=== PATIENT | female | born 1955 | race Caucasian/White ===

== ENCOUNTER 2017-11-05 17:51 | Emergency (ER) | payer OTHER, SELFPAY ==
[2017-11-05 17:52] VITALS: BP 216/92; PULSE 68; RESP 18; TEMP 36.6; O2SAT 99; BMI 21.9
[2017-11-05 18:12] VITALS: BP 243/100; PULSE 74; RESP 18; O2SAT 99
[2017-11-05] MEDS: cloNIDine HCl 0.1 MG Tablet PO (18:27)
[2017-11-05 18:31] LABS: Absolute Lymphocyte Count 3.88 X10^3/ul (0.83-4.51); Absolute Neutrophil Count 3.9 X10^3/uL (2.0-7.7); Basophil# 0.04 X10^3/uL; Basophil% 0.5 % (0-1); Eosinophil# 0.06 X10^3/uL; Eosinophils% 0.7 % (0-5); Hematocrit 42.9 % (37-47); Hemoglobin 15.4 g/dl (12.0-15.0); Lymphocyte # 3.88 X10^3/ul (4.0); Lymphocyte % 45.6 % (19-41); Mean Corp Hgb Conc 35.9 g/gl (32-36); Mean Corpuscular Hgb 31.2 pg (27.0-32.0); Mean Platelet Vol. 10.1 fl (6.2-12.0); Monocyte# 0.59 X10^3/uL; Monocyte% 6.9 % (0-10); Neutrophil # 3.93 X10^3/uL (2.7-7.7); Neutrophil % 46.2 % (47-70); Platelet Count 219 K/mm3 (150-450); RBC Distribution Width CV 12.1 % (11.6-14.6); RBC Distribution Width SD 38.3 fl (35.1-43.9); Red Blood Count 4.93 M/mm3 (4.2-5.4); White Blood Count 8.5 K/mm3 (4.4-11.0)
[2017-11-05 18:33] LABS: POSITIVE COUNT NO; POSITIVE DIFFERENTIAL NO; POSITIVE MORPHOLOGY NO
[2017-11-05 18:36] LABS: Bacteria 0 SEEN /hpf (None Seen); Mucous, Urine 0 SEEN /hpf (<or=2+); Red Blood Cells-Urine 0 SEEN /hpf (0-5); White Blood Cells 0 SEEN /hpf (0-5)
[2017-11-05 18:38] LABS: Color, Urine Straw (Yellow); Glucose, Dipstick Normal (Normal); Ketone-Dipstick Negative (Negative); Leukocyte Esterase-Dipstick Negative /ul (Negative); Nitrite-Dipstick Negative (Negative); Occult Blood-Urine Negative /ul (Negative); Protein-Dipstick Negative (Negative); Urine Bilirubin Dipstick Negative (Negative); Urine Clarity Clear (Clear); Urine Urobilinogen Normal (Normal)
[2017-11-05 18:43] LABS: Anion Gap 5 (5-15); BUN 11 mg/dL (7-18); BUN/Creat Ratio 12.2 RATIO (10-20); Calcium,Total 8.9 mg/dL (8.5-10.1); Chloride 106 mmol/L (98-107); EST Glomerular Filtration Rate 67 mL/min (>60); Est Glom Filt Rate - Afr Amer 81 mL/min (>60); Estimated Creatinine Clearance 52.93 ml/min; Glucose 83 mg/dL (74-106); Potassium 3.4 mmol/L (3.5-5.1); Sodium Level 143 mmol/L (136-145)
[2017-11-05 18:52] LABS: Squamous Epithelial Cells - UA 0-5 SEEN /hpf (5-10)
--- NOTE | 2017-11-05 20:12 | ED.VISSUMM ---
- ER Visit Summary Date of Service: 11/05/17 Date of Service: 11/05/17 Chief Complaint: Hypertension History of Present Illness: The patient is a 62F who is been following with her PCP over the past several weeks for elevated blood pressure. Her systolic blood pressures been ranging in the 170s-180s. She has had a headache that is worse today. Her lisinopril was recently increased from 5 mg to 10 mg, then to 20 mg. Patient denies any vomiting but has had mild nausea. She denies paresthesias. Physical Examination: Blood pressure on arrival is 216/92, temperature 98.0, heart rate 68, respiratory rate 18, pulse ox 99% on room air. Patient sitting upright in a well lit room. She is in no acute distress. Head neck examination unremarkable. Heart is regular rate and rhythm. Lung sounds are clear. Abdomen is soft nontender. Neuro exam reveals normal strength and sensation throughout. Test Results: Head CT shows no acute abnormality. EKG is sinus at 57 with no sign of ischemia. CBC reveals normal white count. Hemoglobin is 15.4. Chemistry studies significant only for potassium slightly low at 3.4. Urinalysis is unremarkable. Emergency Department Course and Treatment: Patient was given clonidine 0.1 mg p.o. Over the next hour and a half place his blood pressure did come down. Final re-eval blood pressure is 147/88 with a heart rate of 58. Patient states her headache is resolved and she feels well. I spoke with Dr. Christiansen, on-call for the patient's primary care physician. He asked that she go ahead and take 40 mg of lisinopril tomorrow and call the office with an update. We will see her in close follow-up. Treatment Plan: [] Disposition: Discharge Impression: 1. Hypertension, improved 2. Cephalgia, resolved This note was generated with [employer] dictation software. It may contain incorrect words, spelling, and punctuation that were not noted in review of the chart prior to signing ED Disposition - Plan for ED Patient: Disposition: Home or Assisted Living Chief Complaint: Sore Throat Instructions: ED Pharyngitis Viral Referrals: Ruddy Soto MD [Primary Care Provider] - 3-5 Days if not improving ED Disposition - Plan for ED Patient: Disposition: Home or Assisted Living Chief Complaint: Headache Instructions: ED HTN Established Referrals: Renny Barros MD [Primary Care Provider] - As soon as possible Additional Instructions: Take Lisinopril 40mg tomorrow - call office tomorrow morning with update and to make an appointment.
[2017-11-05 20:29] VITALS: BP 168/85; PULSE 52; RESP 14; O2SAT 96
== END 2017-11-05 20:31 | disposition home or self-care (01) ==
PROVIDERS: Emergency Provider Emergency Medicine; Family Provider Family Medicine; PCP Family Medicine
DX: I10 Essential (primary) hypertension (principal); R51 Headache; Z87.891 Personal history of nicotine dependence
CPT/HCPCS: 70450; 80048; 81001; 85025; 93005; 99284; A4216

== ENCOUNTER → 2018-11-03 11:27 | Outpatient (CLI) | payer OTHER, SELFPAY ==
[2018-11-03 12:08] LABS: Absolute Lymphocyte Count 3.38 X10^3/uL (0.83-4.51); Basophil# 0.04 X10^3/uL; Basophil% 0.5 % (0-1); Eosinophil# 0.07 X10^3/uL; Eosinophils% 0.9 % (0-5); Hematocrit 42.4 % (37-47); Hemoglobin 14.1 g/dL (12.0-15.0); Lymphocyte # 3.38 X10^3/ul (4.0); Lymphocyte % 41.7 % (19-41); Mean Corp Hgb Conc 33.3 g/dL (32-36); Mean Corpuscular Hgb 29.7 pg (27.0-32.0); Mean Corpuscular Volume 89.5 fL (81-99); Monocyte# 0.64 X10^3/uL; Monocyte% 7.9 % (0-10); NRBC Flagged by Analyzer 0 % (0-5); Neutrophil # 3.96 X10^3/uL (2.7-7.7); Neutrophil % 48.9 % (47-70); Platelet Count 228 K/mm3 (150-450); RBC Distribution Width CV 12.1 % (11.6-14.6); RBC Distribution Width SD 39.8 fl (35.1-43.9); Red Blood Count 4.74 M/mm3 (4.2-5.4); White Blood Count 8.1 K/mm3 (4.4-11.0)
[2018-11-03 12:59] LABS: D-Dimer Quantitative (DVT/PE) 0.29 FEU/ug/m (0.27-0.49)
[2018-11-03 13:05] LABS: Anion Gap 7 (5-15); BUN 24 mg/dL (7-18); BUN/Creat Ratio 23.5 RATIO (10-20); Calcium,Total 8.8 mg/dL (8.5-10.1); Chloride 105 mmol/L (98-107); Creatinine, Serum 1.02 mg/dL (0.55-1.02); EST Glomerular Filtration Rate 58 mL/min (>60); Est Glom Filt Rate - Afr Amer 70 mL/min (>60); Glucose 79 mg/dL (74-106); Magnesium 2.1 mg/dL (1.6-2.6); Potassium 4.2 mmol/L (3.5-5.1); Sodium Level 140 mmol/L (136-145)
== END ==
PROVIDERS: Family Provider Family Medicine; PCP Family Medicine; Referring Provider Family Medicine; Visit Provider Family Medicine
DX: M79.604 Pain in right leg (principal)
CPT/HCPCS: 36415; 80048; 83735; 85025; 85379

== ENCOUNTER → 2018-11-12 11:00 | Outpatient (CLI) | payer OTHER, SELFPAY ==
[2018-11-12 11:43] LABS: D-Dimer Quantitative (DVT/PE) 0.32 FEU/ug/m (0.27-0.49)
== END ==
PROVIDERS: Family Provider Family Medicine; PCP Family Medicine; Referring Provider Family Medicine; Visit Provider Family Medicine
DX: M79.604 Pain in right leg (principal)
CPT/HCPCS: 85379

== ENCOUNTER 2019-05-22 06:47 | Day surgery (SDC) | payer MEDICARE, SELFPAY ==
--- NOTE | 2019-05-02 11:19 | PCM.HP.BLA ---
History and Physical History and Physical [facility] Patient Name: Eve Drummond : 1955 From: [address] PA-C DATE OF SURGERY: 05/22/2019 SCHEDULED PROCEDURE: left thumb carpometacarpal arthroplasty HISTORY OF PRESENT ILLNESS: This is a 64-year-old female who is been having ongoing pain in her left nondominant thumb for several years. Patient denies any trauma or injury. Patient complains of her pain being constant, dull, aching, sharp, stabbing. He can reach as high as a 9/10 with activity. Pain is increased with any gripping, lifting or range of motion of the thumb. Pain is at the base of the left thumb at the CMC joint. She has tried rest, ibuprofen, bracing with minimal relief. Patient states is been progressively been getting worse. Patient denies any recent chest pain, shortness of breath, fevers chills, or recent infections. She has medical history pertinent for hypertension and previous mini stroke several years ago. She denies any change in her medical history. After failing conservative measures and discussing treatment options with Dr. Nash Nick, the patient does wish to proceed with a left thumb carpometacarpal arthroplasty. REVIEW OF SYSTEMS: ROS: Const: Denies change in appetite, fever,or weight change. CV: Denies chest pain, heart murmur and irregular heartbeat. Resp: Reports pneumonia, but denies cough, SOB, tuberculosis and wheezing. GI: Denies constipation, diarrhea, difficulty swallowing, heartburn, nausea, bloody stools and vomiting. : Urinary: denies incontinence. Musculo: Denies leg swelling, limp, trouble walking and weakness. Skin: Denies Raynaud's, history of shingles and tattoo. Neuro: Denies ambulatory dysfunction, dizziness, numbness/tingling and tremor. Psych: Denies anxiety, insomnia and stress. Edmundo/Lymph: Denies anemia, bleeding/bruising tendency and past transfusion. Reviewed, no changes. PAST MEDICAL HISTORY: Advance Care Plan: Other Directive, LIVING WILL Effective Date: 02/06/2019 PMH: Medical Problems: Arthritis, Mini Stroke, High Blood Pressure Accidents: None Surgical Hx: Hysterectomy - (1989) Appendectomy - (1972) Shoulder Arthroscopy Lt - (06/23/2016) [email or web address] Anesthesia Complications: None Assistive Devices: Glasses, Contacts Reviewed, no changes. SOCIAL HISTORY: SH: Marital: .Occupation: Retired.Work Status: Retired.Hand Dominance: Right-handed. Personal Habits: Cigarette Use: Former Cigarette Smoker.Alcohol: Denies use.Drug Use: Denies Use.Enjoy Exercising: Never Exercises. Reviewed and updated. VITALS: Ht: 62 Wt: 122lb Wt k.339 BMI: 22.3 BP: 117/57 Pulse: 70 Resp: 18 T: 96.8 T: 36.0C ALLERGIES: No Known Drug Allergy MEDICATIONS: Oxycodone HCL 5 mg 1-2 tab by mouth every 6 hours, Lisinopril 20 mg 1 by mouth every day, Hydrochlorothiazide 25 mg 1po qday, Estradiol 0.05 mg/24hr daily, Paroxetine HCL 10 mg 1po qday PRE-OP EXAM: General appearance:NORMAL Other: Eyes: Conjunctivae and lids: NORMAL Pupils: ERR Ears, Nose, Mouth, and Throat: NORMAL Other: Inspection of lips, teeth and gums: NORMAL Other: Neck: Examination of neck: no masses noted. Respiratory: Assessment of respiratory effort: NORMAL Other: Auscultation of lungs: clear to auscultation no wheezes, rhonchi or rales. Cardiovascular: Auscultation of heart: regular rate and rhythm, no murmurs, gallops or rubs. Exam of carotid arteries: NORMAL Other: Gastrointestinal: Exam of abdomen: soft, nontender, nondistended bowel sounds present. PHYSICAL EXAMINATION: On exam of the left thumb it is cool to touch and without signs of infection. There is tenderness to palpation at the base of the left thumb at the CMC joint. Patient has positive grind test on the left, decreased luggage liner strength on the left. Patient has good collateral blood flow on Alverto's test. Sensation intact to light touch. Neurovascularly intact. IMAGING STUDIES: X-rays of the left thumb reveal severe first CMC osteoarthritis with joint space narrowing, subchondral sclerosis, osteophyte formation. There is also radial subluxation of the joint. IMPRESSION: 1. Severe left thumb osteoarthritis CMC joint 2. Hypertension 3. History of mini stroke PLAN: Dr. Nash Nick did discuss and review with the patient all treatment options including surgical versus nonsurgical options. Patient does wish to proceed with the above-stated procedure. Potential risks, benefits, and complications of the procedure were discussed in detail including but not limited to , infection, nerve and blood vessel damage, persistent pain, numbness, tingling, paresthesias, blood clot, pulmonary embolism, and requirement for possible further surgery. The patient expressed full understanding and has no further questions for the doctor. Patient does agree to proceed with the above-stated procedure and has signed the surgery consent form. Patient was also given postoperative pain medications at her preoperative visit. This dictation was created using voice recognition software. Phonetic and/or grammatical errors may exist. ___ I have re-examined the patient. There are no clinical changes since date of exam. ___ See progress notes for changes. ___ Dictated on admission Date: Time: Signature:
[2019-05-22] VITALS (8 sets, daily range): BP systolic 100–126; BP diastolic 52–63; PULSE 61–99; RESP 16; TEMP 36.4–36.6; O2SAT 94–99; BMI 21.9
[2019-05-22] MEDS: Lactated Ringers 1,000 ML 125 ML IV ×3 (08:00→11:39)
[2019-05-22] MEDS: Cefazolin 2 GM in 0.9% Normal Saline 100 ML IV (09:11)
--- NOTE | 2019-05-22 09:58 | PCM.OPRPT ---
Report of Operation Date of Procedure: 05/22/19 Pre-Operative Diagnosis: First CMC primary osteoarthritis, left Post-Operative Diagnosis: Left first CMC primary osteoarthritis Surgery/Procedure Performed:: Left first CMC joint reconstruction. Left FCR tendon transfer Description of Surgical Findings:: Stable tendon transfer and reconstruction. dispatcher service or work: Eliceo Anguiano Type of Anesthesia:: General Anesthesiologist: Gurjit Spencer Special Medications: 2 g Ancef Specimen's removed: Bony trapezium Estimated Blood Loss (mL): 5 mL Fluids Replaced: 1200 mL crystalloid Description of Procedure: Operative indications: 64-year-old F failed conservative measures for first CMC osteoarthritis. X-rays show joint space narrowing, subluxation of the joint and osteophyte formation as well as subchondral sclerosis. We discussed surgical intervention including first CMC arthroplasty with tendon transfer. Risks and benefits discussed included but were not limited to blood loss, DVTs, PEs, neurovascular damage, infection, general risk of anesthesia, hematoma and weakness. Patient demonstrated understanding was able to sign informed consent. Procedure: On the date of the procedure the patient's L hand was marked in the preoperative area. Patient was taken back to the operating room where they were transferred to the table in the supine position. Anesthesia assumed control the C-spine airway and remained in control throughout the remainder of the procedure. All bony prominences were identified and well-padded tourniquet was placed on the L upper extremity. The operative extremity was prepped in a sterile fashion. Surgeon then scrubbed Upon reentering the room, the right upper extremity was draped in a standard orthopedic fashion. Incision was marked out. Timeout was called everyone agreed upon the side, the site, the procedure to be performed, patient identity and antibiotics given. Esmarch bandage was used to exsanguinate the extremity. Tourniquet was placed up to 250 mmHg. Incision was taken down through skin. Blunt dissection was taken through subcutaneous tissues. Superficial nerve was identified and retracted out of the way. Radial artery was identified and retracted out of the way. Once we are able to identify the joint arthrotomy was made and the trapezium was identified. Once the trapezium was identified dorsal and volar aspects were debrided of connective tissue. Saw was then used to make a cruciform cut in an osteotomy was completed with the osteotome. Once this was done a rondure was used to remove the bone fragments and the trapezium in its entirety. Attention was then directed towards the FCR to harvest. FCR was identified in the wrist and FiberWire suture was placed around it passed up into the forearm. We then made a small incision in the form and brought the FiberWire through. Transection of the FCR was done in the forearm. The FCR tendon was then fed down to the wrist and into the joint in the previous incision. Vicryl suture was then used to tag the end of the graft for transfer. Attention was then directed towards the proximal end of the first metacarpal. A bur was used to make a bone tunnel for tendon transfer. Loop suture was then passed through the upper holes and used to pull the graft through the bone tunnel. Once this was done a sling was made and 3-0 Ethibond suture was used to tie the tendon on itself. Once the tendon was appropriately secured anchovy was made with the remainder of the tendon. This was sewn down into the joint using 3-0 Ethibond. Copious amounts of irrigation were used throughout the procedure and prior to closure of the wound. Arthrotomy was closed with 2-0 Vicryl skin was closed with 2-0 Vicryl and 4-0 Monocryl with Steri-Strips. Xeroform dressing was placed. Sterile dressing was placed. Compressive dressing was placed. Tourniquet was let down. Well-padded splint was then placed with the thumb in abduction. Patient was then awakened by anesthesia and transferred to the PACU for recovery. Postoperative plan: Patient will remain in the splint for 2 weeks. 2 weeks we will check the incision and remove any sutures or tails. He will be transferred to a cast and abduction at that time. They will then follow standard postoperative protocol for first CMC arthroplasty with Occupational Therapy. - Complications No intraoperative complications - Admit VTE Documentation VTE Present on Admission: No VTE Mechan Device Prophylaxis: SCD's, Thigh High CHICHO Hose VTE Pharm Prophylaxis ordered?: Yes
[2019-05-22] MEDS: Ketorolac 30 MG/ML Syringe IV (11:29)
== END 2019-05-22 12:15 | disposition home or self-care (01) ==
LOC: SDC 06:48 → AC 06:51
PROVIDERS: Family Provider Family Medicine; PCP Family Medicine; Referring Provider Specialist; Visit Provider Specialist
PROC: (CPT 25447; principal; 2019-05-22 08:30)
DX: M18.9 Osteoarthritis of first carpometacarpal joint, unspecified (principal); I10 Essential (primary) hypertension; Z86.73 Personal history of transient ischemic attack (TIA), and cerebral infarction without residual deficits; Z87.891 Personal history of nicotine dependence
CPT/HCPCS: 01830; 25447; J7120; J2405

== ENCOUNTER 2019-08-22 10:30 | Outpatient (RCR) | payer MEDICARE, SELFPAY ==
[2019-05-22 07:07] VITALS: BMI 21.9
--- NOTE | 2019-06-19 14:15 | HP.OTEVAL ---
Patient's Visit Information NELSON FUENTES is a 64 year old F, referred to Occupational Therapy by Néstor Tinoco PA-C, with a diagnosis of left unilateral primary osteoarthritis of 1st carpometacarpal joint. Date of Evaluation: 06/19/19 Occupational Therapist: Randi Marks, LIAM/Jermaine, CHT - Subjective Subjective: This 64 year old female was seen for OT eval with dx of a left CMC osteoarthritis, 4 weeks s/p cmc arthroplasty. pt states sx was on 2019. Pt states currently she is limited with her ADLs and IADLs. Pt states she struggled for three yrs. with left thumb pain. pt is hopeful she will return to performing ADLs and IADLS at IND. level. - ADLs Dressing: Pants, Socks, Shoes Eating: Use silverware Bathing: Handle washcloth & soap, Wash hair, Squeeze shampoo bottle Kitchen: Open jars, Open bottle caps, Ziplock bags - Pain left hand 0 Pain Intensity Range: 5 - ROM Wrist: right 70/70 left 50/40 CMC: right 10 left 0 MP: right 45 left 15 IP: right 60 left 20 - Strength Vacuum Closing Machine Operator: right 50# left NT Lateral Pinch: right 10# left NT Tripod Pinch: right 8# left NT - Sensation Sensation Comments: pt demo with hypersenstivity around incison at this time. - Quick DASH-Disab of Arm,Shoulder& Hand Quick DASH Score: 72.7250 - Goals Goal:100% adherence to protocol: Yes Comment: cmc arthroplasty protocol Goal:Daily scar massage when approriate: Yes Goal:ROM equal to unaffected hand: Yes Goal:Vacuum Closing Machine Operator/Pinch strength at least 75% of unaffected hand: Yes Goal:No pain with affected hand use: Yes Goal:Full use of affected hand in daily activities including: Yes Goal:Decrease scar hypersensitivity: Yes - Rehabilitation General Assessment: Pt is currently 4 wks s/p left cmc arthroplasty. pt limited with wrist/digit ROM and due to healing structures pt limited with left hand use with ADLs and IADLs. Pt would benefit from skilled OT services 1-2x week for 4-6 weeks to decrease pain, increase ROM and strength to return pt to OF. Today therapist robson. custom orthosis ed. to use for 2 weeks weaning her time in and out of it- but to wear it at night and with daily tasks. pt demo understanding. pt also ed. on wrist, supported CMC with MP and IP ROM ex. pt ed on scar mtg and agree to POC. Rehabilitation Potential: Good - Anticipated Interventions Anticipated Interventions: A/AAROM/PROM, Strengthening, Scar Care, Triggerpoint Release, Desensitization, Sensory Retraining, Modalities, Orthoses, Joint Protection/Energy Conservation, Ergonomic Education, Fine Motor Coord/Ashok - Visit Plan Frequency: 1-2x /Week Duration: 4-6 Weeks TEXT: Thank you for the opportunity to evaluate your patient. For Medicare and Medicare HMO plans, please review the plan of care and approve it. It will need to be FAXED BACK to us at [phone] for Medicare purposes. Please let me know if there are questions or concerns regarding this plan of care. Physician Signature: Date:
--- NOTE | 2019-08-22 10:58 | HP.OTREVAL ---
Néstor Tinoco PA-C, It has been my pleasure to treat NELSON FUENTES over the last 5 visits for left unilateral primary osteoarthritis of 1st carpometacarpal joint. Please see the progress note below for an update on the occupational therapy plan of care! Subjective: pt arrives to session states she continues to use her hand for daily task- states fingers are more painful then thumb at this time Objective/Function: wrist. right reaming machine operator for plastic strength 20#. right lateral pinch 2#. right tripod pinch unable. pt reports she is ind. with pulling apart baggies. wrist ROM 60/45. left thumb MP 30. left thumb IP 45. pt has gain functional ROM of left thumb and wrist. reaming machine operator for plastic strength is still weak but progressing as expected. Plan Plan: pt to call if she would like to cont. with more strengthening Goals - Goals Patient Goals: Regain Mobility, Improve Fine Motor Skills, Use Hand/Wrist/Arm Normally Again, Be More Independent in ADLS Goal:100% adherence to protocol: Yes Goal:Daily scar massage when approriate: Yes Goal:ROM equal to unaffected hand: Yes Goal:Therapy Administrative Assistant/Pinch strength at least 75% of unaffected hand: Yes Goal:No pain with affected hand use: Yes Goal:Full use of affected hand in daily activities including: Yes Goal:Decrease scar hypersensitivity: Yes Anticipated Interventions Anticipated Interventions: A/AAROM/PROM, Strengthening, Scar Care, Triggerpoint Release, Desensitization, Sensory Retraining, Modalities, Orthoses, Joint Protection/Energy Conservation, Ergonomic Education, Fine Motor Coord/Ashok Please do not hesitate to contact me at [phone] by phone or if you have questions or concerns regarding this new plan of care! Sincerely, Randi Marks, OTR/L, CHT
--- NOTE | 2019-11-19 12:42 | HP.OTDCSUM_ITS ---
It has been my pleasure to treat NELSON FUENTES under orders from Néstor Tinoco PA-C, for the diagnosis of left unilateral primary osteoarthritis of 1st carpometacarpal joint for a total of 5 visit(s). Please see the following information for a summary of their discharge status. % Improvement: 80 Objective/Function: wrist. right instructor of education strength 20#. right lateral pinch 2#. right tripod pinch unable. pt reports she is ind. with pulling apart baggies. wrist ROM 60/45. left thumb MP 30. left thumb IP 45. pt has gain functional ROM of left thumb and wrist. instructor of education strength is still weak but progressing as expected. Patient Goals: Regain Mobility, Improve Fine Motor Skills, Use Hand/Wrist/Arm Normally Again, Be More Independent in ADLS Goal:100% adherence to protocol: Yes Goal:Daily scar massage when approriate: Yes Goal:ROM equal to unaffected hand: Yes Goal:Machinery Engineer/Pinch strength at least 75% of unaffected hand: Yes Goal:No pain with affected hand use: Yes Goal:Full use of affected hand in daily activities including: Yes Goal:Decrease scar hypersensitivity: Yes Plan: pt to call if she would like to cont. with more strengthening If there are questions or concerns regarding this patient's occupational therapy, please fell free to call me at [phone]. Thank you for the referral of this patient. Sincerely, Randi Marks, LESLEYR/L, CHT
== END 2019-08-22 19:00 | disposition home or self-care (01) ==
LOC: OT 10:30
PROVIDERS: PCP Family Medicine; Referring Provider Physician Assistant Surgical; Visit Provider Physician Assistant Surgical
DX: M16.12 Unilateral primary osteoarthritis, left hip (principal)
CPT/HCPCS: 97110; 97140; 97166; 97530; 97760; 97763

== ENCOUNTER 2022-01-13 16:51 | Emergency (ER) | payer MEDICARE, SELFPAY ==
[2022-01-13 16:54] VITALS: BP 134/68; PULSE 69; RESP 16; TEMP 36.6; O2SAT 99; BMI 22.8
== END 2022-01-13 18:06 | disposition left against medical advice (07) ==
LOC: ED 18:09
PROVIDERS: PCP Internal Medicine
DX: R10.9 Unspecified abdominal pain (principal)

== ENCOUNTER 2023-04-30 14:18 | Emergency (ER) | payer MEDICARE, SELFPAY ==
[2023-04-30 14:19] VITALS: BP 170/51; PULSE 60; RESP 16; TEMP 36.6; O2SAT 100; BMI 22.8
--- NOTE | 2023-04-30 14:34 | EX.ED.DYSGE1 ---
HPI History of Present Illness Chief Complaint: Dizziness [facility] Home Medications lisinopril 5 mg tablet 20 mg PO DAILY 11/05/17 [History Last Taken Unknown] paroxetine HCl 10 mg tablet 10 mg PO DAILY 11/05/17 [History Last Taken Unknown] estradiol 0.5 mg tablet 0.5 mg PO DAILY 05/02/19 [History Last Taken Unknown] hydrochlorothiazide 25 mg tablet 12.5 mg PO DAILY 05/02/19 [History Last Taken Unknown] amlodipine 5 mg tablet 5 mg PO DAILY 04/30/23 [History Last Taken Unknown] Allergy/AdvReac Type Severity Reaction Status Date / Time No Known Allergies Allergy Verified 04/30/23 14:21 Social History Smoking Status: Former smoker EXAM Physical Exam Const Vital Signs: 04/30/23 14:19 04/30/23 14:40 04/30/23 14:52 Temperature 97.8 F Temperature Source Temporal Pulse Rate 60 54 L Respiratory Rate 16 18 Respiratory Effort Non-Labored Respiratory Pattern Normal Blood Pressure 170/51 H 152/64 H Blood Pressure Mean 90 93 Pulse Ox 100 99 Oxygen Delivery Method Room Air Room Air [facility] Narrative Medical decision making narrative: HISTORY OF PRESENT ILLNESS: 68-year-old female presents with concern for headache nausea and dizziness. Notes is been going on for 3 days. Notes dizziness was sudden onset is worse with head movement. She notes dizziness is improved with head movement however today she noted it was difficult for her to balance to coordinate her movements. She states that was concerning which prompted her visit. She notes nausea but no vomiting. Denies any head trauma. Notes a headache that is gradual in onset, similar to prior. REVIEW OF SYSTEMS: Pertinent positives: Headache, nausea, dizziness, incoordination, ataxia Pertinent negatives: Slurred speech, facial drooping, loss of vision, vomiting, chest pain, palpitations, diarrhea, numbness, tingling, loss of sensation, weakness PHYSICAL EXAM: Nursing triage notes reviewed, Vital signs reviewed Constitutional: please see mdm HENT: MMM, no temporal artery tenderness Eyes: Pupils equal round and reactive to light, Extraocular muscles intact, visual herman intact, no horizontal or vertical nystagmus Neck: No stridor, no JVD, full neck ROM Lungs: Clear to auscultation, No wheezing or rales. No increased work of breathing, no conversational dyspnea, no accessory muscle use, no nasal flaring. No respiratory distress noted Heart: Regular rate and rhythm, No murmurs, No rubs and No gallops, 2+ distal pulses (radial, femoral, posterior tibial) in all extremities Abdomen: Soft, there is no tenderness, rigidity, rebound or guarding, no obvious peritoneal signs, no palpable pulsatile abdominal masses, no auscultated abdominal bruit : No CVAT Extremities: No edema Neuro: Alert and oriented x3, neuro exam at baseline, cranial nerves II through XII are intact. No pain with extraocular muscle movement. There is negative test of skew. 5 of 5 strength in upper and lower extremities in flexion extension. Intact sensation to light touch in upper and lower extremity dermatomes. No truncal or extremity ataxia. No dysdiadochokinesia. Normal gait. 2+ reflexes in upper and lower extremities. No meningeal signs. Negative Babinski. NIH of 0. Negative hints exam Skin: No rash or lesions noted MEDICAL DECISION MAKING: Chief Complaint: Headache, dizziness, nausea External records reviewed: Imaging studies reviewed: CT scan of the head from 2018 shows no acute intracranial normality Factors affecting care: Hypertension, Social determinants of health: Denies drug use History obtained from others: The patient's Consults: none MDM Narrative: Patient was hemodynamically stable, afebrile, nontoxic-appearing. Initial neurologic exam without focal deficits, NIH of 0, no signs of ataxia, negative hints exam. I considered the following differential diagnosis: Posterior circulation CVA, peripheral vertigo, dehydration, electro disturbance, arrhythmia, anemia, ACS I obtained a broad lab and imaging workup to further elucidate the etiology of the patient complaints. I treated the patient symptomatically with 1 L normal saline, meclizine and Zofran for symptomatic control. ALL IMAGES (IF OBTAINED) HAVE BEEN PERSONALLY REVIEWED AND INTERPRETED BY MYSELF. I have personally reviewed the patient's chest x-ray. Chest x-ray is unremarkable for pulmonary edema, pneumothorax, pneumonia or focal cardiopulmonary abnormality. CT scan head shows no evidence of intracranial normality, bleed or mass CT of the head neck shows no evidence of large vessel occlusion EKG with sinus bradycardia, normal axis, normal's, no obvious STEMI High-sensitivity troponin is negative, no evidence of myocardial ischemia CBC without leukocytosis, severe anemia, no thrombocytopenia. CMP without evidence of acute kidney injury, significant electrolyte abnormality, anion gap, no evidence hepatobiliary pathology. Synthesis the patient history, physical exam, labs images suggest no acute process however patient is 68 years old has history of hyperlipidemia and concern for her report of difficulty with balance. Concern specifically for posterior circulation CVA. Offered admission to undergo MRI and further testing. Patient who is alert and orient x 3, capacity make own medical decisions and chose forgoe admission at this time. I explained the risk and benefits of admission versus discharge. Patient understood risk and benefits. She expressed understanding. Where we did discuss close PCP follow-up for outpatient respective modification outpatient MRI. I recommended her taking a daily aspirin. Patient agreed agreed to return if symptoms change or worsen. The patient and/or family, caregivers express understanding. The patient and/or family, caregivers agrees with the plan. Shared decision making: I will have a discussion with the patient and or visitors regarding risk/benefits of further testing or admission. They will be made aware of of the risk/benefits inherent in this decision they will be given the opportunity to voice understanding. Total critical care time today provided was at least 0 minutes. This excludes separately billable procedures. Critical care time (if documented) is secondary to the patient having high probability of clinically significant/life threatening deterioration in the patient's condition which required my urgent intervention. Impression: 1. Dizziness 2. History of hyperlipidemia Dispo: Discharge This note was generated with [employer]ar[employer] dictation software. It may contain incorrect words, spelling, and punctuation that were not noted in review of the chart prior to signing. Lab Data Labs: Laboratory Results - last 24 hr 04/30/23 15:17 WBC 7.8 RBC 4.79 Hgb 14.3 Hct 42.7 MCV 89.1 MCH 29.9 MCHC 33.5 RDW Std Deviation 39.5 RDW Coeff of Nehemiah 12.0 Plt Count 219 MPV 9.6 Immature Gran % (Auto) 0.300 Neut % (Auto) 42.7 L Lymph % (Auto) 48.9 H Barnwell % (Auto) 6.8 Eos % (Auto) 0.9 Baso % (Auto) 0.4 Absolute Neuts (auto) 3.3 Absolute Lymphs (auto) 3.82 Nucleated RBC % 0 Sodium 142 Potassium 4.0 Chloride 111 H Carbon Dioxide 28.0 Anion Gap 3 L BUN 15 Creatinine 0.90 Estim Creat Clear Calc 46.66 Est GFR (MDRD) Af Amer 80 Est GFR (MDRD) Non-Af 66 BUN/Creatinine Ratio 16.6 Glucose 71 L Calcium 8.9 Total Bilirubin 0.60 AST 19 ALT 19 Alkaline Phosphatase 121 H Troponin I High Sens 5 Total Protein 7.6 Albumin 3.5 Globulin 4.1 Albumin/Globulin Ratio 0.9 Radiography Diagnostic Testing: Clinical Impression(s) from Imaging Studies Head/Neck CTA 04/30/23 14:52 IMPRESSION: 1. No large vessel occlusion or critical intracranial arterial stenosis. 2. Less than 50% stenosis of the bilateral internal carotid arteries in the neck by NASCET criteria. Electronically Signed: Marcus Hinton DO at 16:28 EST , Chest X-Ray 04/30/23 16:00 IMPRESSION: No acute findings in the chest. Electronically Signed: Marcus Hinton DO at 16:10 EST , Discharge Plan Triage Chief Complaint: Dizziness ED Provider: Neville Farrell Dx/Rx/DC Orders Prescriptions: No Action paroxetine HCl 10 MG tablet 10 mg PO DAILY Patient Comments: TAKE ONE TABLET BY MOUTH ONCE DAILY lisinopril 5 MG tablet 20 mg PO DAILY hydrochlorothiazide 25 MG tablet 12.5 mg PO DAILY estradiol 0.5 MG tablet 0.5 mg PO DAILY amlodipine 5 mg tablet 5 mg PO DAILY Patient Comments: take 1 tablet by mouth once daily Primary Care Provider: Chadd Foley Referrals: Chadd Foley MD [Primary Care Provider] -
[2023-04-30 14:52] VITALS: BP 152/64; PULSE 54; RESP 18; O2SAT 99
--- NOTE | 2023-04-30 14:52 | CT_ITS ---
EXAM: CT ANGIOGRAPHY HEAD AND NECK WITHOUT AND WITH INTRAVENOUS CONTRAST CLINICAL INDICATION: Dizziness, uncoordinated x 3 days TECHNIQUE: [place] [facility] [place]/head and neck CT angiography protocol performed without and with intravenous contrast. This CT exam was performed using one or more of the following dose reduction techniques: automated exposure control, adjustment of the mA and/or kV according to patient size, and/or use of iterative reconstruction technique. MIP reconstructed images were created and reviewed. CONTRAST: IV 100mL [id number] COMPARISON: CT head, 11/05/[address] angiogram head and neck, 03/24/2016. FINDINGS: HEAD: RIGHT ANTERIOR CEREBRAL ARTERY: No significant abnormality. No occlusion or significant stenosis. Anterior communicating artery is present. No aneurysm. RIGHT MIDDLE CEREBRAL ARTERY: No significant abnormality. No occlusion or significant stenosis. No aneurysm. RIGHT POSTERIOR CEREBRAL ARTERY: Small right posterior communicating artery is present. No occlusion or significant stenosis. No aneurysm. RIGHT INTRACRANIAL INTERNAL CAROTID ARTERY: No significant abnormality. No significant stenosis. No dissection or occlusion. 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 This is unchanged compared to the prior exam. No significant stenosis. No dissection or occlusion. LEFT ANTERIOR CEREBRAL ARTERY: No significant abnormality. No occlusion or significant stenosis. No aneurysm. LEFT MIDDLE CEREBRAL ARTERY: No significant abnormality. No occlusion or significant stenosis. No aneurysm. LEFT POSTERIOR CEREBRAL ARTERY: Small left posterior communicating artery is present. No occlusion or significant stenosis. No aneurysm. LEFT INTRACRANIAL INTERNAL CAROTID ARTERY: No significant abnormality. No significant stenosis. No dissection or occlusion. LEFT INTRACRANIAL VERTEBRAL ARTERY: No significant abnormality. No significant stenosis. No dissection or occlusion. BASILAR ARTERY: No significant abnormality. No occlusion or significant stenosis. No aneurysm. OTHER VASCULATURE: No vascular malformation. BRAIN AND EXTRA-AXIAL SPACES: No significant abnormality. No intra- or extra-axial hemorrhage. No evidence of acute infarct. No intracranial mass or mass effect. There is preservation of the welch/white matter interface. Posterior fossa structures are unremarkable. Ventricles are appropriate for age. No hydrocephalus. Basal cisterns are patent. SINUSES: Normal as visualized. Clear. MASTOID AIR CELLS: Normal as visualized. Clear. ORBITS: Visualized globes, extraocular muscles, optic nerves and retrobulbar fat appear unremarkable. NECK: RIGHT COMMON CAROTID ARTERY: No significant abnormality. No significant stenosis. No dissection or occlusion. RIGHT EXTRACRANIAL INTERNAL CAROTID ARTERY: Mild atherosclerosis of the right carotid bifurcation and carotid bulb with less than 50% stenosis of the right internal carotid artery by NASCET criteria. No dissection or occlusion. RIGHT EXTERNAL CAROTID ARTERY: No significant abnormality. No occlusion. RIGHT EXTRACRANIAL VERTEBRAL ARTERY: No significant abnormality. No significant stenosis. No dissection or occlusion. LEFT COMMON CAROTID ARTERY: No significant abnormality. No significant stenosis. No dissection or occlusion. LEFT EXTRACRANIAL INTERNAL CAROTID ARTERY: Mild atherosclerosis of the left carotid bifurcation and carotid bulb with less than 50% stenosis of the left internal carotid artery by NASCET criteria. No dissection or occlusion. LEFT EXTERNAL CAROTID ARTERY: No significant abnormality. No occlusion. LEFT EXTRACRANIAL VERTEBRAL ARTERY: No significant abnormality. No significant stenosis. No dissection or occlusion. BRACHIOCEPHALIC AND SUBCLAVIAN ARTERIES: Normal as visualized. No occlusion or significant stenosis. LUNG APICES: Normal as visualized. HEAD and NECK: BONES/JOINTS: Bilateral TMJ arthrosis. Degenerative changes in the spine. No discrete lytic or blastic abnormalities. SOFT TISSUES: No significant abnormality. CAROTID STENOSIS REFERENCE USING NASCET CRITERIA: % ICA stenosis = (1 - narrowest ICA diameter/diameter of distal cervical ICA) x 100. Mild - <50% stenosis. Moderate - 50-69% stenosis. Severe - 70-94% stenosis. Near occlusion - 95-99% stenosis. Occluded - 100% stenosis. CT/CTA Head AND Neck W/ Contrast IMPRESSION: 1. No large vessel occlusion or critical intracranial arterial stenosis. 2. Less than 50% stenosis of the bilateral internal carotid arteries in the neck by NASCET criteria. Electronically Signed: Marcus Hinton DO at 16:28 EST ,
--- OUTSIDE RECORDS SUMMARY | 2023-04-30 15:01 | XMS RPT_ITS | CCD ---
Author Name Unknown Address [address] [place] [address] Organization [facility] Care Team Providers Care Chief Nursing Officer Name Role Phone Chadd Carlson MD Primary Care Provider [phone] CHADD CARLSON Primary Care Unavailable ИРИНА MAN Attending Unavailable Chadd Carlson MD Primary Care Provider [phone] CHADD CARLSON Primary Care Unavailable CHADD CARLSON Primary Care Unavailable SREE REN Attending Unavailable CHADD CARLSON Primary Care Unavailable MIREYA ZUÑIGA Referring Unavailable CHADD CARLSON Primary Care Unavailable MIREYA ZUÑIGA Attending Unavailable CHADD CARLSON Referring Unavailable CHADD CARLSON Primary Care Unavailable CHRYSTAL WHITLEY Attending Unavailable Medications Completed/Discontinued Medications Medication Drug Class(es) Dates Sig (Normalized) Sig (Original) amLODIPine 5 mg oral tablet (9 sources) Dihydropyridine Calcium Channel Andrew Start: 08-09-2022 take 1 tablet by mouth once daily amLODIPine (NORVASC) 5 mg tablet Indications: Hypertension, essential Take 1 tablet by mouth once daily. 90 tablet 3 08/09/2022 Active Problems Active Problems Problem Classification Problem Date Documented Date Episodic/Chronic Abdominal pain (1 source) Unspecified abdominal pain; Translations: [Abdominal pain, unspecified abdominal location] Onset: 01-13-2022 Episodic Disorders of lipid metabolism (8 sources) Hyperlipidemia; Translations: [Hyperlipidemia, unspecified] Onset: 05-18-2018 05-18-2018 Chronic Essential hypertension (9 sources) Essential hypertension; Translations: [Essential (primary) hypertension] Onset: 05-18-2018 05-18-2018 Chronic Menopausal disorders (7 sources) Menopausal symptom; Translations: [Menopausal and female climacteric states] Onset: 03-14-2012 03-14-2012 Chronic Osteoarthritis (7 sources) Osteoarthritis of first carpometacarpal joint of left hand; Translations: [Unilateral primary osteoarthritis of first carpometacarpal joint, left hand] Onset: 05-06-2019 05-06-2019 Chronic Other upper respiratory infections (2 sources) Pharyngitis; Translations: [Acute pharyngitis, unspecified] Episodic Urinary tract infections (1 source) Urinary tract infection, site not specified; Translations: [Urinary tract infection without hematuria, site unspecified] Onset: 01-13-2022 Episodic Past or Other Problems Problem Classification Problem Date Documented Da te Episodic/Chronic Headache; including migraine (7 sources) Headache; Translations: [Headache] Onset: 11-16-2006 08-31-2017 Episodic Other screening for suspected conditions (not mental disorders or infectious disease) (7 sources) Patient encounter status; Translations: [Encounter for screening mammogram for malignant neoplasm of breast] Onset: 10-31-2022 Episodic Results Test Name Value Interpretation Reference Range Facil ity Vital Signs Date Time Vital Sign Value Performing Clinician Rohini [email or web address] 10-31-2022 09:43-0400 Diastolic blood pressure 64 mm[Hg] Sree Ren MD Work Phone: [facility] 10-31-2022 09:43-0400 Heart rate 58 /min Sree Ren MD Work Phone: [facility] 10-31-2022 09:43-0400 Respiratory rate 16 /min Sree Ren MD Work Phone: [facility] 10-31-2022 09:43-0400 SaO2% (BldA) [Mass fraction] 98 % Sree Ren MD Work Phone: [facility] 10-31-2022 09:43-0400 Systolic blood pressure 129 mm[Hg] Sree Ren MD Work Phone: [facility] 10-31-2022 07:55-0400 Body temperature 8.01 [degF] Sree Ren MD Work Phone: [facility] 10-31-2022 07:55-0400 Body weight 56.2 kg Sree Ren MD Work Phone: [facility] 08-02-2022 09:49-0400 Body height 156.2 cm Chrystal Litchfield INFRASTRUCTURE ANALYST.PACKAGING ENGINEER Work Phone: [facility] 08-02-2022 09:49-0400 Body weight 56.7 kg Chrystal Litchfield INFRASTRUCTURE ANALYST.PACKAGING ENGINEER Work Phone: [facility] 08-02-2022 09:49-0400 Diastolic blood pressure 66 mm[Hg] Chrystal Litchfield INFRASTRUCTURE ANALYST.PACKAGING ENGINEER Work Phone: [facility] 08-02-2022 09:49-0400 Systolic blood pressure 120 mm[Hg] Chrystal Gutierrez INFRASTRUCTURE ANALYST.PACKAGING ENGINEER Work Phone: [facility] 06-08-2022 18:43-0400 Body temperature 97.39 [degF] Cecile Cormier INFRASTRUCTURE ANALYST.PACKAGING ENGINEER Work Phone: [facility] 06-08-2022 18:43-0400 Body weight 58.51 kg Cecile Cormier INFRASTRUCTURE ANALYST.PACKAGING ENGINEER Work Phone: [facility] 06-08-2022 18:43-0400 Diastolic blood pressure 62 mm[Hg] Cecile Cormier INFRASTRUCTURE ANALYST.PACKAGING ENGINEER Work Phone: [facility] 06-08-2022 18:43-0400 Heart rate 75 /min Cecile Cormier INFRASTRUCTURE ANALYST.PACKAGING ENGINEER Work Phone: [facility] 06-08-2022 18:43-0400 Respiratory rate 21 /min Cecile Cormier INFRASTRUCTURE ANALYST.PACKAGING ENGINEER Work Phone: [facility] 06-08-2022 18:43-0400 SaO2% (BldA) [Mass fraction] 98 % Cecile Cormier INFRASTRUCTURE ANALYST.PACKAGING ENGINEER Work Phone: [facility] 06-08-2022 18:43-0400 Systolic blood pressure 132 mm[Hg] Cecile Cormier INFRASTRUCTURE ANALYST.PACKAGING ENGINEER Work Phone: [facility] Encounters Encounter Date Encounter Type Care Provider Facility Start: 04-08-2023 End: 04-08-2023 ambulatory CHADD CARLSON Facility:[facility] Start: 10-31-2022 End: 10-31-2022 ambulatory SREE REN Facility:[facility] Start: 10-31-2022 End: 10-31-2022 Subsequent hospital visit by physician Sree Ren MD Work Phone: Ambulatory Surgery Procedures Date Procedure Procedure Detail Performing Clinician Start: 10-31-2022 Colonoscopy flx dx w /collj spec when pfrmd Mireya Older INFRASTRUCTURE ANALYST.PACKAGING ENGINEER Work Phone: Start: 10-31-2022 Colonoscopy Sree almazan MD Work Phone: Start: 06-08-2022 STREP A MOLECULAR (POC) Cecile Cormier INFRASTRUCTURE ANALYST.PACKAGING ENGINEER Work Phone: Start: 05-26-2021 Mammography Brittney Cee MD Work Phone: Start: 11-04-2020 Adult depression scr eening assessment Brittney Cee MD Work Phone: Start: 10-06-2020 Lipid 1996 panel - S lore or Plasma Sree Ren MD Work Phone: Start: 07-11-2012 Colonoscopy Brittney Cee MD Work Phone: Plan of Treatment Date Care Activity Detail Author Start: 10-31-2032 Colonoscopy Colonoscopy [facility] Start: 10-31-2032 Colorectal Cancer Screening Colorectal Cancer Screening [facility] Start: 10-06-2025 Lipid 1996 panel - S lore or Plasma Lipid Screening [facility] Start: 10-06-2025 LIPID SCREEN LIPID SCREEN [facility] Start: 01-13-2025 DIABETES SCREEN DIABETES SCREEN [facility] Start: 01-13-2025 Diabetes Screening Diabetes Screenin g [facility] Start: 10-07-2023 DIABETES SCREEN DIABETES SCREEN [facility] Start: 08-10-2023 Annual PCP Team Sheet Combining Operator gayathri Disease Visit Annual PCP Team Chronic Disease Visit [facility] Start: 08-10-2023 BP Controlled (<130/80) BP Controlle d (<130/80) [facility] Start: 08-10-2023 Shingrix Vaccine (1 of 2) Shingrix V accine (1 of 2) [facility] Immunizations Immunization Date Immunization Notes Care Provider Fa jose g 08-09-2022 pneumococcal polysaccharide vaccine, 23 valent Sree Ren MD Work Phone: [facility] 03-22-2021 COVID-19 original vaccine, age 12+ yr, monovalent (PFIZER-BIONTECH - PURPLE TOP) Sree Ren MD Work Phone: [facility] 11-04-2020 pneumococcal conjuga te vaccine, 13 valent Brittney Cee MD Work Phone: [facility] 07-17-2020 COVID-19 original vaccine, age 12+ yr, monovalent (PFIZER-BIONTECH - PURPLE TOP) Sree Ren MD Work Phone: [facility] 06-26-2020 COVID-19 original vaccine, age 12+ yr, monovalent (PFIZER-BIONTECH - PURPLE TOP) Sree Ren MD Work Phone: [facility] 06-23-2017 influenza, injectabl e, quadrivalent, contains preservative Brittney Cee MD Work Phone: [facility] Work Phone: 06-23-2017 influenza virus vacc ine, unspecified formulation Sree Ren MD Work Phone: [facility] 03-24-2016 influenza, seasonal, injectable, preservative free Brittney Cee MD Work Phone: [facility] Payers Date Payer Category Payer Medicare [employer] [place] [facility] [id number] 06/25/2020-Present [phone] [address] [place] [address] [facility] [id number] 06-25-2020 Medicare [id number] 06-25-2020 Unknown [id number] Social History Date Type Detail Facility Start: 08-26-2010 End: 06-08-2022 Tobacco smoking status NHIS Ex-smoker [facility] End: 11-16-1986 History of tobacco use Current smoker [facility] Start: 05-26-2021 End: 10-31-2022 Alcohol intake Current non-drinker of alcohol (finding) [facility] Start: 1955 Sex Assigned At Female C [facility] End: 11-16-1986 History of tobacco use Cigarette Smoker [facility] Work Phone: Start: 08-26-2010 End: 06-08-2022 Tobacco use and exposure Smokeless tobacco non-user [facility] Work Phone: Start: 08-02-2022 End: 10-31-2022 History of Social function [facility] Work Phone: Start: 08-02-2022 End: 10-31-2022 Tobacco use panel [facility] Work Phone: Adult Depression Screening Assessment 0 [facility] Work Phone: Start: 05-24-2021 Sexual orientation Heterosexual (reina beckett) [facility] Clinical Notes 05-18-2018 to 04-08-2023 Nori Javier RN - 10/31/2022 9:13 AM Sree Vera MD - 10/31/2022 8:45 AM Umu Whitley APRN.CNP - 08/02/2022 9:43 AM EDTPatient Instructions Note Date & Type Note Facility 04-08-2023 Note HNO ID: [id number] Author: CARLOS ENRIQUE MCRAE APRN.JONG Service: ? Author Type: Nurse Practitioner Type: Progress Notes Filed: 04/08/2023 12:58 Note Text: CC: Patient presents with: Urinary Frequency: burning with urination x this am Pt woke up with burning when she urinates. Denies history of UTIs or Kidney Stones. Reports urine stream is normal. Denies nausea, vomiting, fever, diarrhea. HPI Nelson Fuentes is a 68 year old female who presents with complaint of possible UTI. These symptoms have been present for 1 day. Associated symptoms: burning and frequency Denies: backpain, hematuria, pressure, fever, chills, abdominal pain, flank pain, and abnormal vaginal discharge Treatments: nothing The ROS was otherwise negative. PMH, Medications, labs, allergies, and recent past visits with PCP were reviewed and updated as able. PHYSICAL EXAM: BP 122/62 Pulse 64 Temp 36.1 ?C (96.9 ?F) Resp 16 Wt 57.6 kg (127 lb) SpO2 96% BMI 23.98 kg/m? General: Well appearing and alert CV: Regular rate and rhythm without obvious murmur Lungs: clear to auscultation bilaterally Back: straight and symmetric, no CVA tenderness Abdomen: soft, nontender, nondistended PAST MEDICAL HISTORY Diagnosis Date BPPV (benign paroxysmal positional vertigo) 12/10/2014 Carcinoma in situ of cervix uteri Cervical carcinoma (HCC) 03/18/2013 COVID-19 03/09/2020 Headache 11/16/2006 Hyperlipidemia with target LDL less than 100 05/18/2018 Hypertension Hypertension, essential 05/18/2018 Osteoarthritis of carpometacarpal (CMC) joint of left thumb 05/06/2019 Symptomatic menopausal or female climacteric states 03/14/2012 Transient global amnesia 05/18/2018 PAST SURGICAL HISTORY Procedure Laterality Date APPENDECTOMY APPENDECTOMY HX COLONOSCOPY FLX DX W/COLLJ SPEC WHEN PFRMD 07/11/2012 Colonoscopy SHOULDER LEFT OUT PT SURGERY 08/2016 SKIN BIOPSY HX TOTAL ABDOMINAL HYSTERECT W/WO RMVL TUBE OVARY BSO 32 years ago VAGINAL HYSTERECTOMY ALLERGIES Patient has no known allergies. MEDICATIONS amLODIPine (NORVASC) 5 mg tablet Take 1 tablet by mouth once daily. Estradiol (ESTRACE) 0.5 mg tablet Take 1 tablet by mouth once daily. PARoxetine (PAXIL) 10 mg tablet Take 1 tablet by mouth once daily. nitrofurantoin monohydrate and macrocrystal (MACROBID) 100 mg capsule Take 1 capsule by mouth two times a day for 5 days. FAMILY HISTORY Problem Relation Age of Onset Diabetes Mother Hypertension Mother Lipids Mother Cancer Father brain Stroke Father Lipids Father Hypertension Sister Heart Brother [place] at 45 Hypertension Brother x4 Heart Maternal Aunt [place] at 58 other (dementia) Maternal Aunt Ischemic Heart Disease Paternal Aunt Heart Other cousin Social History Tobacco Use Smoking status: Former Types: Cigarettes Quit date: 11/16/1986 Years since quittin.4 Smokeless tobacco: Never Vaping Use Vaping Use: Never used Substance Use Topics Alcohol use: No Drug use: No DATA REVIEWED: POC Urine ASSESSMENT/PLAN: 1. Urinary frequency - ICD9: 788.41, ICD10: R35.0 acute - UA positive for gilmar esterase, hematuria, and proteinuria - Send urine for culture - Patient education for prevention given - UA DIP, URINE (POC) - URINE CULTURE - NITROFURANTOIN MONOHYDRATE AND MACROCRYSTAL 100 MG ORAL CAP Prescription instructions reviewed with patient. Potential red flag symptoms discussed with the patient. Reviewed appropriate action plan to take if red flag symptoms occur. Patient agreeable to treatment plan. Brit Luong [facility] 10-31-2022 Nurse Note Arrived in phase II via cart. Left lateral position. Sedated, but responds to verbal stimuli. Color normal; skin warm and dry. Respirations wnl and unlabored. Abdomen soft and with + bowel sounds in quads X 4. Patient resting comfortably. Family at bedside. Dr. Ren at bedside to review procedure and recommendations. Nori aJvier RN documented in this encounter [facility] 10-31-2022 History and physical note CRISTY Fuentes is a 67 year old female who presents today for routine follow-up. HTN-Medication changes:No Taking all medications as prescribed: Yes Side effects: No Home BP's: No Denies: headache, chest pain, palpitations, dyspnea, and peripheral edema. Last 3 Encounter BP Readings: Date: BP: 08/09/2022 126/68 08/02/2022 120/66 06/08/2022 132/62 REVIEW OF SYSTEMS GENERAL: Negative for malaise, significant weight loss and fever RESPIRATORY: Negative for cough and wheezing CARDIOVASCULAR: Negative for claudication, orthopnea, and paroxysmal nocturnal dyspnea PAST MEDICAL HISTORY PAST MEDICAL HISTORY Diagnosis Date BPPV (benign paroxysmal positional vertigo) 12/10/2014 Carcinoma in situ of cervix uteri Cervical carcinoma (HCC) 03/18/2013 COVID-19 03/09/2020 Headache 11/16/2006 Hyperlipidemia with target LDL less than 100 05/18/2018 Hypertension Hypertension, essential 05/18/2018 Osteoarthritis of carpometacarpal (CMC) joint of left thumb 05/06/2019 Symptomatic menopausal or female climacteric states 03/14/2012 Transient global amnesia 05/18/2018 PAST SURGICAL HISTORY PAST SURGICAL HISTORY Procedure Laterality Date APPENDECTOMY COLONOSCOPY FLX DX W/COLLJ SPEC WHEN PFRMD 07/11/2012 Colonoscopy SHOULDER LEFT OUT PT SURGERY 08/2016 TOTAL ABDOMINAL HYSTERECT W/WO RMVL TUBE OVARY BSO 32 years ago ALLERGIES Patient has no known allergies. MEDICATIONS CURRENT MEDICATIONS amLODIPine (NORVASC) 5 mg tablet Take 1 tablet by mouth once daily. peg 3350-electrolytes (COLYTE) 240-22.72-6.72 -5.84 gram solution Take 4,000 mL by mouth one time only for 1 dose. Estradiol (ESTRACE) 0.5 mg tablet Take 1 tablet by mouth once daily. PARoxetine (PAXIL) 10 mg tablet Take 1 tablet by mouth once daily. FAMILY HISTORY FAMILY HISTORY Problem Relation Age of Onset Diabetes Mother Hypertension Mother Lipids Mother Cancer Father brain Stroke Father Lipids Father Hypertension Sister Heart Brother [place] at 45 Hypertension Brother x4 Heart Maternal Aunt [place] at 58 other (dementia) Maternal Aunt Ischemic Heart Disease Paternal Aunt Heart Other cousin SOCIAL HISTORY Social History Tobacco Use Smoking status: Former Types: Cigarettes Quit date: 11/16/1986 Years since quittin.7 Smokeless tobacco: Never Vaping Use Vaping Use: Never used Substance Use Topics Alcohol use: No Drug use: No PHYSICAL EXAM BP 126/68 Pulse 64 Resp 12 Ht 155 cm (5' 1.02 ) Wt 56.2 kg (124 lb) BMI 23.41 kg/m General Appearance: well appearing, in no acute distress, alert Neck: Thyroid normal size and symmetric without palpable nodules, Neck supple, No adenopathy Lymph nodes: No supraclavicular lymphadenopathy Lungs: Lungs clear to auscultation. No wheezing, rhonchi, rales. Heart: RRR without murmur, gallop, or rubs. No ectopy Health maintenance reviewed with patient: ANNUAL PCP TEAM CHRONIC DISEASE VISIT due on 11/04/2021 ADVANCE DIRECTIVE DISCUSSION Never done DEPRESSION ASSESSMENT Never done MAMMOGRAM due on 05/26/2022 COLORECTAL CANCER SCREENING due on 07/11/2022 DTAP,TDAP,TD(1 - Tdap) due on 08/10/2023 SHINGRIX VACCINE(1 of 2) due on 08/10/2023 COVID-19 VACCINE(4 - Booster for Pfizer series) due on 08/10/2023 INFLUENZA(Season Ended) due on 11/25/2022 BP CONTROLLED (<130/80) due on 08/03/2023 DIABETES SCREEN due on 01/13/2025 LIPID SCREEN due on 10/06/2025 BONE DENSITY Completed PNEUMOCOCCAL: 65+ Completed HEPATITIS C SCREENING Discontinued DATA REVIEWED: Most recent labs ASSESSMENT/PLAN: 1. Medicare annual wellness visit, subsequent - ICD9: V70.0, ICD10: Z00.00 (primary diagnosis) See Medicare wellness note 2. Hypertension, essential - ICD9: 401.9, ICD10: I10 - good control - Continue current medication(s) - Recommended regular aerobic exercise. - Recommend home blood pressure monitoring, to bring results in on next visit - Goal of BP <130/80 - AMLODIPINE 5 MG TABLET 3. Hyperlipidemia with target LDL less than 100 - ICD9: 272.4, ICD10: E78.5 - to be determined upon return of lab results 4. Encounter for immunization - ICD9: V03.89, ICD10: Z23 Pneumovax 5. Special screening for malignant neoplasms, colon - ICD9: V76.51, ICD10: Z12.11 - COLONOSCOPY SCREENING - PEG 3350 240 GRAM-ELECTROLYTES 22.72 GRAM-6.72 G-5.84 G POWDR FOR SOLN Prescription instructions reviewed with patient as applicable. Potential red flag symptoms discussed with the patient. Reviewed appropriate action plan to take if red flag symptoms occur. Patient agreeable to treatment plan. Mireya Jean-Baptiste APRN.PACKAGING ENGINEER UPDATED HISTORY AND PHYSICAL EXAMINATION SERVICE DATE: 10/31/2022 SERVICE TIME: 8:06 AM PHYSICAL EXAM MUST BE COMPLETED ON ADMISSION The History and Physical (completed in the past 30 days) has been reviewed and the patient has been examined. The contents accurately reflect the patient's condition with the following additions or revisions since the H&P was completed. Examination indicates no changes. This H&P can be found in the attached. SIGNATURE: Sree Ren III, MD PATIENT NAME: Nelson Fuentes DATE: October 31, 2022 TIME: 8:05 AM documented in this encounter [facility] 08-09-2022 Note HNO ID: [id number] Author: Mireya Jean-Baptiste APRN.PACKAGING ENGINEER Service: ? Author Type: Nurse Practitioner Type: Progress Notes Filed: 08/09/2022 12:35 PM Note Text: CC: Patient presents with: Medicare Wellness Exam HPI Nelson Fuentes is a 67 year old female who presents today for routine follow-up. HTN-Medication changes:No Taking all medications as prescribed: Yes Side effects: No Home BP's: No Denies: headache, chest pain, palpitations, dyspnea, and peripheral edema. Last 3 Encounter BP Readings: Date: BP: 08/09/2022 126/68 08/02/2022 120/66 06/08/2022 132/62 REVIEW OF SYSTEMS GENERAL: Negative for malaise, significant weight loss and fever RESPIRATORY: Negative for cough and wheezing CARDIOVASCULAR: Negative for claudication, orthopnea, and paroxysmal nocturnal dyspnea PAST MEDICAL HISTORY Diagnosis Date BPPV (benign paroxysmal positional vertigo) 12/10/2014 Carcinoma in situ of cervix uteri Cervical carcinoma (HCC) 03/18/2013 COVID-19 03/09/2020 Headache 11/16/2006 Hyperlipidemia with target LDL less than 100 05/18/2018 Hypertension Hypertension, essential 05/18/2018 Osteoarthritis of carpometacarpal (CMC) joint of left thumb 05/06/2019 Symptomatic menopausal or female climacteric states 03/14/2012 Transient global amnesia 05/18/2018 PAST SURGICAL HISTORY Procedure Laterality Date APPENDECTOMY COLONOSCOPY FLX DX W/COLLJ SPEC WHEN PFRMD 07/11/2012 Colonoscopy SHOULDER LEFT OUT PT SURGERY 08/2016 TOTAL ABDOMINAL HYSTERECT W/WO RMVL TUBE OVARY BSO 32 years ago ALLERGIES Patient has no known allergies. MEDICATIONS amLODIPine (NORVASC) 5 mg tablet Take 1 tablet by mouth once daily. peg 3350-electrolytes (COLYTE) 240-22.72-6.72 -5.84 gram solution Take 4,000 mL by mouth one time only for 1 dose. Estradiol (ESTRACE) 0.5 mg tablet Take 1 tablet by mouth once daily. PARoxetine (PAXIL) 10 mg tablet Take 1 tablet by mouth once daily. FAMILY HISTORY Problem Relation Age of Onset Diabetes Mother Hypertension Mother Lipids Mother Cancer Father brain Stroke Father Lipids Father Hypertension Sister Heart Brother [place] at 45 Hypertension Brother x4 Heart Maternal Aunt [place] at 58 other (dementia) Maternal Aunt Ischemic Heart Disease Paternal Aunt Heart Other cousin Social History Tobacco Use Smoking status: Former Types: Cigarettes Quit date: 11/16/1986 Years since quittin.7 Smokeless tobacco: Never Vaping Use Vaping Use: Never used Substance Use Topics Alcohol use: No Drug use: No PHYSICAL EXAM BP 126/68 Pulse 64 Resp 12 Ht 155 cm (5' 1.02 ) Wt 56.2 kg (124 lb) BMI 23.41 kg/m? General Appearance: well appearing, in no acute distress, alert Neck: Thyroid normal size and symmetric without palpable nodules, Neck supple, No adenopathy Lymph nodes: No supraclavicular lymphadenopathy Lungs: Lungs clear to auscultation. No wheezing, rhonchi, rales. Heart: RRR without murmur, gallop, or rubs. No ectopy Health maintenance reviewed with patient: ANNUAL PCP TEAM CHRONIC DISEASE VISIT due on 11/04/2021 ADVANCE DIRECTIVE DISCUSSION Never done DEPRESSION ASSESSMENT Never done MAMMOGRAM due on 05/26/2022 COLORECTAL CANCER SCREENING due on 07/11/2022 DTAP,TDAP,TD(1 - Tdap) due on 08/10/2023 SHINGRIX VACCINE(1 of 2) due on 08/10/2023 COVID-19 VACCINE(4 - Booster for Pfizer series) due on 08/10/2023 INFLUENZA(Season Ended) due on 11/25/2022 BP CONTROLLED (<130/80) due on 08/03/2023 DIABETES SCREEN due on 01/13/2025 LIPID SCREEN due on 10/06/2025 BONE DENSITY Completed PNEUMOCOCCAL: 65+ Completed HEPATITIS C SCREENING Discontinued DATA REVIEWED: Most recent labs ASSESSMENT/PLAN: 1. Medicare annual wellness visit, subsequent - ICD9: V70.0, ICD10: Z00.00 (primary diagnosis) See Medicare wellness note 2. Hypertension, essential - ICD9: 401.9, ICD10: I10 - good control - Continue current medication(s) - Recommended regular aerobic exercise. - Recommend home blood pressure monitoring, to bring results in on next visit - Goal of BP <130/80 - AMLODIPINE 5 MG TABLET 3. Hyperlipidemia with target LDL less than 100 - ICD9: 272.4, ICD10: E78.5 - to be determined upon return of lab results 4. Encounter for immunization - ICD9: V03.89, ICD10: Z23 Pneumovax 5. Special screening for malignant neoplasms, colon - ICD9: V76.51, ICD10: Z12.11 - COLONOSCOPY SCREENING - PEG 3350 240 GRAM-ELECTROLYTES 22.72 GRAM-6.72 G-5.84 G POWDR FOR SOLN Prescription instructions reviewed with patient as applicable. Potential red flag symptoms discussed with the patient. Reviewed appropriate action plan to take if red flag symptoms occur. Patient agreeable to treatment plan. Mireya Jean-Baptiste APRN.CNP [facility] 08-09-2022 Note HNO ID: [id number] Author: Mireya Jean-Baptiste APRN.JONG Service: ? Author Type: Nurse Practitioner Type: Progress Notes Filed: 08/09/2022 12:35 PM Note Text: Nelson Fuentes is a 67 year old female here for a Medicare Subsequent Annual Wellness Visit Health Risk Assessment In general, health is: Excellent Concerns with balance:Not at all Concerns with teeth or dentures:Not at all Concerns with sexual function:Not at all Isabela anxious, stressed, angry, irritable, lonely, isolated, or had thoughts of hurting themself: Not at all Has little interest or pleasure in doing things: Not at all Bothered by feeling down, depressed, or hopeless: Not at all Needs help with grocery shopping, cooking, housework, bathing, grooming, dressing, eating, sitting or standing, walking, using the toilet, handling finances, taking medications, using the telephone, or driving: No Following safety precautions in the home environment and vehicle: removed throw rugs from floors, installed grab bars in the bathroom, handrails in stairwells, having adequate lighting, wearing seatbelt at all times?: Yes except no grab bars Smokes cigarettes, vapes, or chew tobacco: No Eats healthy foods including fruits, vegetables, whole grains, and fiber-rich foods: Nearly every day Number of days per week engages in exercise: stretching, sit ups and other body weight exercises, walking Average alcohol consumption: Never Current Providers Specialists: I have reviewed specialist-related care of the patient in the medical record. Current care team: Patient Care Team: Chadd Carlson MD as PCP - General (Internal Medicine) [facility] [employer]HICLE MODIFICATION TECHNICIAN Outside specialists seen: [facility] Medical/Family history review Reviewed and updated problem list, medical/surgical/family/social history, medications, and allergies. Opioid use review Patient is not currently using opioids. Depression screening Depression Screening PHQ-2 Score 08/09/2022 0 Depression screening tool completed and reviewed. Based on score and interview, patient is not at risk for depression. Screening tool discussed with patient, and I recommended no further intervention at this time. Cognitive screening Mini Cog Score: 5 Cognitive screening reviewed and no further action needed (score 3-5) Functional Observation Was the patient's timed Up AND Go test unsteady or ? 12 seconds? No Advance Care Planning End of Life planning discussed, including patient's advanced directive wishes: Yes Measurements BP 126/68 Pulse 64 Resp 12 Ht 5' 1.024 (1.55m) Wt 124 lb (56.2kg) BMI 23.41 kg/(m2). Visual acuity (required for Welcome to Medicare): follows with optometry/ophthalmology Hearing Evaluation: within normal limits ASSESSMENT/PLAN: 1. Medicare annual wellness visit, subsequent - ICD9: V70.0, ICD10: Z00.00 (primary diagnosis) The following prevention plan was discussed during the office visit and provided to the patient: - fall risk reduction - Counseled on healthy diet and regular exercise - Calcium intake with supplements or by diet of 1000 mg/day for under 50, 4483-5444 mg/day for 50+ - Colorectal cancer screening recommended - agrees to Colonoscopy - Mammogram ordered - exam recommended once yearly - Patient was counseled [id number] by myself (the billing provider) for the following immunizations and vaccine components, including side effects: Pneumococcal . Patient consents for immunization and understands risks and benefits. A VIS sheet on each immunization was given to the patient. - follow-up for medicare annual exam in one year Mireya Jean-Baptiste APRN.CNP TR OPEN ACCESS QUESTIONNAIRE 1. Are you currently having any new or unusual stomach/gastrointestinal issues at this time such as constipation, diarrhea, abdominal pain, rectal bleeding etc?No 2. Do you have any difficulty swallowing? No 3. Do you have any implanted devices such as a defibrillator, pacemaker, cardiac stents or deep brain stimulator? No 4. Do you take any Blood thinners such as Coumadin, Plavix, Xarelto, Eliquis, Brilinta or any other blood thinner? No 5. Do you have any new or past cardiac (heart) or pulmonary (lung) issues? No 6. Do you currently use any oxygen? No 7. Have you been hospitalized in the past 6 weeks? No 8. Have you had difficulty with anesthesia previously re: Difficult intubation? No Other difficulty or allergic reaction to anesthesia other than post op N/V? No 9. Are you on dialysis? No 10. Do you have any bleeding disorders such as hemophilia or Factor 5? No 11. Are you an Insulin Dependent Diabetic? NA IF ANY OF THE TOP ELEVEN QUESTIONS ARE ANSWERED YES PLEASE SCHEDULE THE PATIENT FOR A CONSULT. N/A 12. Is the patient's BMI 40 or greater? No:Body mass index is 23.41 kg/m?.. 13. Do you take any narcotics or anti-Anxiety medications? No 14. Do you use any illegal or recreational drugs including marijuana? No 15. A (more content not included)... [facility] 08-02-2022 Note HNO ID: [id number] Author: Chrystal Whitley APRN.PACKAGING ENGINEER Service: ? Author Type: Nurse Practitioner Type: Progress Notes Filed: 08/02/2022 10:19 AM Note Text: Dry Color Tester offered: Patient declines. Prado is a 67 year old who presents for an annual gynecologic exam without complaints. Postmenopausal: Yes HRT use: Yes, estradiol How long: years . Last Pap: 03/25/2013 normal HPV: 08/03/2005 N/A History of abnormal pap: Yes 1994 TASH,BSO CIS Last mammogram: 2021 normal History of abnormal mammogram: No Sexually active: Yes Pain with intercourse: No Postcoital bleeding: No Hot flashes: No Night sweats: No Vaginal dryness: No OB History T1 L1 SAB0 IAB0 Ectopic0 Multiple0 Live Births0 Elevated Guard History LMP: Hysterectomy Age at Menarche: Age at First : Age at Menopause: Elevated Guard History Comments: Sexual Activity: Not Asked; No partner data on record Contraception: No contraception data on record PAST MEDICAL HISTORY Diagnosis Date BPPV (benign paroxysmal positional vertigo) 12/10/2014 Carcinoma in situ of cervix uteri Cervical carcinoma (HCC) 03/18/2013 COVID-19 03/09/2020 Hyperlipidemia with target LDL less than 100 05/18/2018 Hypertension Hypertension, essential 05/18/2018 Osteoarthritis of carpometacarpal (CMC) joint of left thumb 05/06/2019 Symptomatic menopausal or female climacteric states 03/14/2012 Transient global amnesia 05/18/2018 PAST SURGICAL HISTORY Procedure Laterality Date APPENDECTOMY COLONOSCOPY FLX DX W/COLLJ SPEC WHEN PFRMD 07/11/2012 Colonoscopy SHOULDER LEFT OUT PT SURGERY 08/2016 TOTAL ABDOMINAL HYSTERECT W/WO RMVL TUBE OVARY BSO 32 years ago FAMILY HISTORY Problem Relation Age of Onset Diabetes Mother Hypertension Mother Lipids Mother Cancer Father brain Stroke Father Lipids Father Hypertension Sister Heart Brother [place] at 45 Hypertension Brother x4 Heart Maternal Aunt [place] at 58 other (dementia) Maternal Aunt Ischemic Heart Disease Paternal Aunt Heart Other cousin SOCIAL HISTORY Social History Tobacco Use Smoking status: Former Types: Cigarettes Quit date: 11/16/1986 Years since quittin.7 Smokeless tobacco: Never Vaping Use Vaping Use: Never used Substance Use Topics Alcohol use: No Drug use: No REVIEW OF SYSTEMS Abdomen: No abdominal pain, nausea, vomiting, diarrhea, or constipation. No bloating, early satiety, indigestion, or increased flatulence. Bladder: No dysuria, gross hematuria, urinary frequency, urinary urgency, or incontinence Breast: No breast lumps, nipple d/c, overlying skin changes, redness or skin retraction Allergies and current medication updated:Yes EXAM: There were no vitals taken for this visit. GENERAL: pleasant, female in no apparent distress HEENT: Normocephalic, atraumatic, mucus membranes moist, and no lesions NECK: Supple, full range of motion, no adenopathy, and thyroid normal DERMATOLOGY: Normal, without lesions, non-icteric, and non-hirsute BREAST: soft, non-tender, symmetric, no dominant mass, normal nipple-areolar complex, no lymphadenopathy, and no nipple discharge CHEST: Normal inspiratory effort ABDOMEN: soft, non-tender, and no masses PELVIC: external genitalia normal, normal Bartholin's glands, urethra, Wynot's glands, no vulvar lesions, physiologic discharge present, normal appearing perineal body and perianal region, cervix surgically absent BIMANUAL: no adnexal masses, non-tender, and uterus surgically absent RECTOVAGINAL: deferred. NEURO: alert and oriented x3,exam grossly non-focal EXTREMITIES: normal ASSESSMENT/PLAN: 1) Health maintenance: Pap/HPV screening no longer needed Mammogram ordered Nutrition, exercise and routine health maintenance exams reviewed. Calcium/Vitamin D supplementation information provided. Colon cancer screening: GI referral for colonoscopy BMD: up to date 2) Follow up one year or sooner as needed Chrystal Whitley APRN.JONG [facility] 08-02-2022 History of Presen t illness Narrative Dry Color Tester offered: Patient declinesNeelima Prado is a 67 year old who presents for an annual gynecologic exam without complaints. Postmenopausal: Yes HRT use: Yes, estradiol How long: years . Last Pap: 03/25/2013 normal HPV: 08/03/2005 N/A History of abnormal pap: Yes 1994 TASH,BSO CIS Last mammogram: 2021 normal History of abnormal mammogram: No Sexually active: Yes Pain with intercourse: No Postcoital bleeding: No Hot flashes: No Night sweats: No Vaginal dryness: No OB History T1 L1 SAB0 IAB0 Ectopic0 Multiple0 Live Births0 Elevated Guard History LMP: Hysterectomy Age at Menarche: Age at First : Age at Menopause: Elevated Guard History Comments: Sexual Activity: Not Asked; No partner data on record Contraception: No contraception data on record PAST MEDICAL HISTORY Diagnosis Date BPPV (benign paroxysmal positional vertigo) 12/10/2014 Carcinoma in situ of cervix uteri Cervical carcinoma (HCC) 03/18/2013 COVID-19 03/09/2020 Hyperlipidemia with target LDL less than 100 05/18/2018 Hypertension Hypertension, essential 05/18/2018 Osteoarthritis of carpometacarpal (CMC) joint of left thumb 05/06/2019 Symptomatic menopausal or female climacteric states 03/14/2012 Transient global amnesia 05/18/2018 PAST SURGICAL HISTORY Procedure Laterality Date APPENDECTOMY COLONOSCOPY FLX DX W/COLLJ SPEC WHEN PFRMD 07/11/2012 Colonoscopy SHOULDER LEFT OUT PT SURGERY 08/2016 TOTAL ABDOMINAL HYSTERECT W/WO RMVL TUBE OVARY BSO 32 years ago FAMILY HISTORY Problem Relation Age of Onset Diabetes Mother Hypertension Mother Lipids Mother Cancer Father brain Stroke Father Lipids Father Hypertension Sister Heart Brother [place] at 45 Hypertension Brother x4 Heart Maternal Aunt [place] at 58 other (dementia) Maternal Aunt Ischemic Heart Disease Paternal Aunt Heart Other cousin SOCIAL HISTORY Social History Tobacco Use Smoking status: Former Types: Cigarettes Quit date: 11/16/1986 Years since quittin.7 Smokeless tobacco: Never Vaping Use Vaping Use: Never used Substance Use Topics Alcohol use: No Drug use: No REVIEW OF SYSTEMS Abdomen: No abdominal pain, nausea, vomiting, diarrhea, or constipation. No bloating, early satiety, indigestion, or increased flatulence. Bladder: No dysuria, gross hematuria, urinary frequency, urinary urgency, or incontinence Breast: No breast lumps, nipple d/c, overlying skin changes, redness or skin retraction Allergies and current medication updated:Yes EXAM: There were no vitals taken for this visit. GENERAL: pleasant, female in no apparent distress HEENT: Normocephalic, atraumatic, mucus membranes moist, and no lesions NECK: Supple, full range of motion, no adenopathy, and thyroid normal DERMATOLOGY: Normal, without lesions, non-icteric, and non-hirsute BREAST: soft, non-tender, symmetric, no dominant mass, normal nipple-areolar complex, no lymphadenopathy, and no nipple discharge CHEST: Normal inspiratory effort ABDOMEN: soft, non-tender, and no masses PELVIC: external genitalia normal, normal Bartholin's glands, urethra, Wynot's glands, no vulvar lesions, physiologic discharge present, normal appearing perineal body and perianal region, cervix surgically absent BIMANUAL: no adnexal masses, non-tender, and uterus surgically absent RECTOVAGINAL: deferred. NEURO: alert and oriented x3,exam grossly non-focal EXTREMITIES: normal ASSESSMENT/PLAN: 1) Health maintenance: Pap/HPV screening no longer needed Mammogram ordered Nutrition, exercise and routine health maintenance exams reviewed. Calcium/Vitamin D supplementation information provided. Colon cancer screening: GI referral for colonoscopy BMD: up to date 2) Follow up one year or sooner as needed Chrystal Whitley APRN.CNP documented in this encounter [facility] 07-25-2022 Miscellaneous Notes Refill request received from pharmacy. Patient last seen for annual exam on 05/26/21. PSS: Please contact patient to schedule annual exam. Trice Jeffries RN documented in this encounter [facility] 07-04-2022 Miscellaneous Notes Last annual with DM 05/26/21. Requested Prescriptions Pending Prescriptions Disp Refills PARoxetine (PAXIL) 10 mg tablet 90 tablet 3 Sig: Take 1 tablet by mouth once daily. Silvia Davidson RN documented in this encounter [facility] 06-29-2022 Note Patient Outreach (IN [facility]) NELSON FUENTES ([id number]) 1955 F Date Time Provider Department 06/29/22 CHADD CARLSON During your visit today, we recorded the following information about you: Allergies As of Date: 06/29/2022 (No Known Allergies) Date Reviewed: 06/08/2022 Reviewed by: Ailyn Adair MA - Fully Assessed Visit Diagnosis:Encounter for screening mammogram for breast cancer [Z12.31] Order(s):[facility] SCREENING [[id number]] Order #: [id number] FUTURE Prescriptions as of 07/04/2022 - amLODIPine (NORVASC) 5 mg tablet Take 1 tablet by mouth once daily. - PARoxetine (PAXIL) 10 mg tablet take 1 tablet by mouth once daily - Estradiol (ESTRACE) 0.5 mg tablet Take 1 tablet by mouth once daily. Problem List As Of Date 06/29/2022 Noted Resolved Headache [R51.9] 11/16/2006 Symptomatic menopausal or female climacteric st*03/14/2012 Cervical carcinoma (HCC) [C53.9] 03/18/2013 10/06/2020 BPPV (benign paroxysmal positional vertigo) [H8*12/10/2014 10/06/2020 Sprain of neck [S13.9XXA] 12/10/2014 10/06/2020 Transient global amnesia [G45.4] 05/18/2018 10/06/2020 Hyperlipidemia with target LDL less than 100 [E*05/18/2018 Hypertension, essential [I10] 05/18/2018 Osteoarthritis of carpometacarpal (CMC) joint o*05/06/2019 Encounter Status:Closed by EPIC, PRODUSER on 07/04/22 [facility] 06-08-2022 Note HNO ID: [id number] Author: Cecile Cormier APRN.PACKAGING ENGINEER Service: ? Author Type: Nurse Practitioner Type: Progress Notes Filed: 06/09/2022 12:25 PM Note Text: This note was created using [employer]. Subjective Nelson Fuentes is a 67 year old female. 67 year old female with PMH hyperlipidemia and HTN presents for illness. Acute onset last night. + sore throat +nausea +headache +fatigue +nausea Denies cough Denies emesis. Denies diarrhea Denies ill contacts Denies tobacco usage Used salt water gargles. The history is provided by the patient. No high school foreign language teacher was used. Sore Throat This is a new problem. The current episode started yesterday. The problem has been unchanged. Neither side of throat is experiencing more pain than the other. The maximum temperature recorded prior to her arrival was 100.4 - 100.9 F. The pain is at a severity of 5/10. The pain is moderate. Associated symptoms include congestion, headaches, a hoarse voice and swollen glands. Pertinent negatives include no abdominal pain, coughing, diarrhea, drooling, ear discharge, ear pain, plugged ear sensation, neck pain, shortness of breath, stridor, trouble swallowing or vomiting. She has had no exposure to strep or mono. She has tried gargles for the symptoms. The treatment provided no relief. PAST MEDICAL HISTORY Diagnosis Date BPPV (benign paroxysmal positional vertigo) 12/10/2014 Carcinoma in situ of cervix uteri Cervical carcinoma (HCC) 03/18/2013 COVID-19 03/09/2020 Hyperlipidemia with target LDL less than 100 05/18/2018 Hypertension Hypertension, essential 05/18/2018 Osteoarthritis of carpometacarpal (CMC) joint of left thumb 05/06/2019 Symptomatic menopausal or female climacteric states 03/14/2012 Transient global amnesia 05/18/2018 PAST SURGICAL HISTORY Procedure Laterality Date APPENDECTOMY COLONOSCOPY FLX DX W/COLLJ SPEC WHEN PFRMD 07/11/2012 Colonoscopy SHOULDER LEFT OUT PT SURGERY 08/2016 TOTAL ABDOMINAL HYSTERECT W/WO RMVL TUBE OVARY BSO 32 years ago ALLERGIES Patient has no known allergies. MEDICATIONS amLODIPine (NORVASC) 5 mg tablet Take 1 tablet by mouth once daily. PARoxetine (PAXIL) 10 mg tablet take 1 tablet by mouth once daily Estradiol (ESTRACE) 0.5 mg tablet Take 1 tablet by mouth once daily. FAMILY HISTORY Problem Relation Age of Onset Diabetes Mother Hypertension Mother Lipids Mother Cancer Father brain Stroke Father Lipids Father Hypertension Sister Heart Brother [place] at 45 Hypertension Brother x4 Heart Maternal Aunt [place] at 58 other (dementia) Maternal Aunt Ischemic Heart Disease Paternal Aunt Heart Other cousin Social History Tobacco Use Smoking status: Former Types: Cigarettes Quit date: 11/16/1986 Years since quittin.5 Smokeless tobacco: Never Vaping Use Vaping Use: Never used Substance Use Topics Alcohol use: No Drug use: No Review of Systems Constitutional: Positive for chills, fatigue and fever. Negative for activity change and appetite change. HENT: Positive for congestion, hoarse voice, postnasal drip and sore throat. Negative for drooling, ear discharge, ear pain, nosebleeds and trouble swallowing. Eyes: Negative for pain, discharge, redness and itching. Respiratory: Negative for apnea, cough, chest tightness, shortness of breath and stridor. Cardiovascular: Negative for chest pain, palpitations and leg swelling. Gastrointestinal: Negative for abdominal pain, diarrhea and vomiting. Musculoskeletal: Negative for arthralgias, back pain and neck pain. Skin: Negative for color change, pallor and rash. Allergic/Immunologic: Negative for environmental allergies, food allergies and immunocompromised state. Neurological: Positive for headaches. Negative for dizziness and facial asymmetry. Hematological: Negative for adenopathy. Does not bruise/bleed easily. Psychiatric/Behavioral: Negative for agitation and behavioral problems. Objective BP 132/62 Pulse 75 Temp 36.3 ?C (97.4 ?F) Resp 21 Wt 58.5 kg (129 lb) SpO2 98% BMI 23.59 kg/m? Physical Exam Vitals and nursing note reviewed. Constitutional: General: She is not in acute distress. Appearance: Normal appearance. She is normal weight. She is not ill-appearing, toxic-appearing or diaphoretic. HENT: Head: Normocephalic and atraumatic. Right Ear: Ear canal and external ear normal. Left Ear: Ear canal and external ear normal. Nose: Nose normal. No congestion or rhinorrhea. Mouth/Throat: Mouth: Mucous membranes are moist. Pharynx: Posterior oropharyngeal erythema present. No oropharyngeal exudate. Eyes: General: Right eye: No discharge. Left eye: No discharge. Extraocular Movements: Extraocular movements intact. Conjunctiva/sclera: Conjunctivae normal. Pupils: Pupils are equal, round, and reactive to light. Cardiovascular: Rate and Rhythm: Normal rate and regular rhythm. Pulses: Normal pulses. H (more content not included)... [facility] 06-08-2022 Instructions Cecile Cormier APRN.[facility] - 06/08/2022 7:29 PM EDT RESPIRATORY INFECTION GENERAL INFORMATION: An upper respiratory tract infection, or cold, is a viral infection of the airway passages. It can be caused by any one of almost 200 different viruses. Common symptoms include a runny or stuffy nose, sneezing, watery eyes, sore throat, cough, and slight fever. Colds are contagious, especially during the first 3 or 4 days and cannot be cured by antibiotics. They are spread by coughs, sneezes, and direct contact, especially [id number]. A respiratory tract infection usually clears up in a few days, but some people may be sick for a week or two. INSTRUCTIONS: 1. Be careful not to blow your nose too hard because this may cause a nosebleed. 2. Use a cool-mist humidifier (vaporizer) to increase air moisture. This will make it easier for you to breathe. Do not use hot steam. 3. Rest as much as possible and get plenty of sleep. 4. Wash your hands often, especially after you blow your nose. Cover your mouth and nose with a tissue when you sneeze or cough. 5. Drink plenty of clear fluids (8 glasses a day) such as water, fruit juice, tea, clear soups, and carbonated beverages. CONTACT YOUR DOCTOR IF : 1. Your fever lasts more than 3 days. 2. You have a sore throat that gets worse or you see white or yellow spots in your throat. 3. Your cough gets worse or lasts more than 10 days. 4. You develop a rash anywhere on your skin. 5. You have an earache or a headache. 6. You have thick greenish or yellowish discharge from your nose. RETURN IMMEDIATELY IF: 1. You cough up thick yellow, green, welch, or bloody sputum. 2. You have difficulty breathing, pain in your chest, or your skin or nails look welch or blue. 3. You have shaking chills or a temperature over 102 F (39 C). documented in this encounter [facility] 06-08-2022 History of Presen t illness Narrative This note was created using [employer]. Subjective Nelson Fuentes is a 67 year old female. 67 year old female with PMH hyperlipidemia and HTN presents for illness. Acute onset last night. + sore throat +nausea +headache +fatigue +nausea Denies cough Denies emesis. Denies diarrhea Denies ill contacts Denies tobacco usage Used salt water gargles. The history is provided by the patient. No high school foreign language teacher was used. Sore Throat This is a new problem. The current episode started yesterday. The problem has been unchanged. Neither side of throat is experiencing more pain than the other. The maximum temperature recorded prior to her arrival was 100.4 - 100.9 F. The pain is at a severity of 5/10. The pain is moderate. Associated symptoms include congestion, headaches, a hoarse voice and swollen glands. Pertinent negatives include no abdominal pain, coughing, diarrhea, drooling, ear discharge, ear pain, plugged ear sensation, neck pain, shortness of breath, stridor, trouble swallowing or vomiting. She has had no exposure to strep or mono. She has tried gargles for the symptoms. The treatment provided no relief. PAST MEDICAL HISTORY Diagnosis Date BPPV (benign paroxysmal positional vertigo) 12/10/2014 Carcinoma in situ of cervix uteri Cervical carcinoma (HCC) 03/18/2013 COVID-19 03/09/2020 Hyperlipidemia with target LDL less than 100 05/18/2018 Hypertension Hypertension, essential 05/18/2018 Osteoarthritis of carpometacarpal (CMC) joint of left thumb 05/06/2019 Symptomatic menopausal or female climacteric states 03/14/2012 Transient global amnesia 05/18/2018 PAST SURGICAL HISTORY Procedure Laterality Date APPENDECTOMY COLONOSCOPY FLX DX W/COLLJ SPEC WHEN PFRMD 07/11/2012 Colonoscopy SHOULDER LEFT OUT PT SURGERY 08/2016 TOTAL ABDOMINAL HYSTERECT W/WO RMVL TUBE OVARY BSO 32 years ago ALLERGIES Patient has no known allergies. MEDICATIONS amLODIPine (NORVASC) 5 mg tablet Take 1 tablet by mouth once daily. PARoxetine (PAXIL) 10 mg tablet take 1 tablet by mouth once daily Estradiol (ESTRACE) 0.5 mg tablet Take 1 tablet by mouth once daily. FAMILY HISTORY Problem Relation Age of Onset Diabetes Mother Hypertension Mother Lipids Mother Cancer Father brain Stroke Father Lipids Father Hypertension Sister Heart Brother [place] at 45 Hypertension Brother x4 Heart Maternal Aunt [place] at 58 other (dementia) Maternal Aunt Ischemic Heart Disease Paternal Aunt Heart Other cousin Social History Tobacco Use Smoking status: Former Types: Cigarettes Quit date: 11/16/1986 Years since quittin.5 Smokeless tobacco: Never Vaping Use Vaping Use: Never used Substance Use Topics Alcohol use: No Drug use: No Review of Systems Constitutional: Positive for chills, fatigue and fever. Negative for activity change and appetite change. HENT: Positive for congestion, hoarse voice, postnasal drip and sore throat. Negative for drooling, ear discharge, ear pain, nosebleeds and trouble swallowing. Eyes: Negative for pain, discharge, redness and itching. Respiratory: Negative for apnea, cough, chest tightness, shortness of breath and stridor. Cardiovascular: Negative for chest pain, palpitations and leg swelling. Gastrointestinal: Negative for abdominal pain, diarrhea and vomiting. Musculoskeletal: Negative for arthralgias, back pain and neck pain. Skin: Negative for color change, pallor and rash. Allergic/Immunologic: Negative for environmental allergies, food allergies and immunocompromised state. Neurological: Positive for headaches. Negative for dizziness and facial asymmetry. Hematological: Negative for adenopathy. Does not bruise/bleed easily. Psychiatric/Behavioral: Negative for agitation and behavioral problems. Objective BP 132/62 Pulse 75 Temp 36.3 C (97.4 F) Resp 21 Wt 58.5 kg (129 lb) SpO2 98% BMI 23.59 kg/m Physical Exam Vitals and nursing note reviewed. Constitutional: General: She is not in acute distress. Appearance: Normal appearance. She is normal weight. She is not ill-appearing, toxic-appearing or diaphoretic. HENT: Head: Normocephalic and atraumatic. Right Ear: Ear canal and external ear normal. Left Ear: Ear canal and external ear normal. Nose: Nose normal. No congestion or rhinorrhea. Mouth/Throat: Mouth: Mucous membranes are moist. Pharynx: Posterior oropharyngeal erythema present. No oropharyngeal exudate. Eyes: General: Right eye: No discharge. Left eye: No discharge. Extraocular Movements: Extraocular movements intact. Conjunctiva/sclera: Conjunctivae normal. Pupils: Pupils are equal, round, and reactive to light. Cardiovascular: Rate and Rhythm: Normal rate and regular rhythm. Pulses: Normal pulses. Heart sounds: Normal heart sounds. No murmur heard. No friction rub. Pulmonary: Effort: Pulmonary effort is normal. No respiratory distress. Breath sounds: Normal breath sounds. No stridor. No wheezing, rhonchi or rales. Chest: Chest wall: No tenderness. Abdominal: General: Abdomen is flat. There is no distension. Palpations: Abdomen is soft. There is no mass. Tenderness: There is no abdominal tenderness. There is no right CVA tenderness, left CVA tenderness, guarding or rebound. Hernia: No hernia is present. Musculoskeletal: General: No swelling, tenderness, deformity or signs of injury. Normal range of motion. Cervical back: Normal range of motion and neck supple. No rigidity. Right lower leg: No edema. Left lower leg: No edema. Lymphadenopathy: Cervical: No cervical adenopathy. Skin: General: Skin is warm and dry. Coloration: Skin is not jaundiced or pale. Findings: No bruising, erythema, lesion or rash. Neurological: General: No focal deficit present. Mental Status: She is alert and oriented to person, place, and time. Cranial Nerves: No cranial nerve deficit. Sensory: No sensory deficit. Motor: No weakness. Coordination: Coordination normal. Gait: Gait normal. Psychiatric: Mood and Affect: Mood normal. Behavior: Behavior normal. Thought Content: Thought content normal. Judgment: Judgment normal. Assessment and Plan ASSESSMENT/PLAN: 1. Pharyngitis, unspecified etiology - ICD9: 462, ICD10: J02.9 (primary diagnosis) - suspect viral - Alere Strep Test NEGATIVE, no culture pending - Discussed supportive care treatment with fluids, rest and analgesia. - The patient may also use OTC cough and cold meds as needed, warm salt water gargles, throat lozenges and/or OTC throat spray as needed, and nasal saline gtts and suction prn. - Contagious dz precautions discussed- including considered contagious until on antibiotics for 24 hours - The patient should follow up in 3-5 days if symptoms persist or worsen - Call back if drooling, increased temperature, symptoms of dehydration and/or still sick in one week - STREP A MOLECULAR (POC) 2. URI, acute - ICD9: 465.9, ICD10: J06.9 - Discussed viral etiology and rationale for treatment. - Symptomatic treatment with prn analgesia - Supportive care with fluids and rest - COVID WITH FLUA+B, ROUTINE-DECLINED Cecile Cormier APRN.PACKAGING ENGINEER documented in this encounter [facility] 01-11-2022 Miscellaneous Notes CLEMENTINA: 11/04/2020 NOV: none scheduled. Advised via mychart to schedule overdue follow up Last refill: 11/04/2020 QTY: 90 Refills: 3 Patient has been identified by name and date of : Yes Requested Prescriptions Pending Prescriptions Disp Refills amLODIPine (NORVASC) 5 mg tablet 90 tablet 3 Sig: Take 1 tablet by mouth once daily. RX INSTRUCTIONS: patient taking last pill today. Patient aware RX will be sent to pharmacy. No need to notify patient. Betsy White documented in this encounter [facility] 08-02-2021 Miscellaneous Notes Refill request received from pharmacy for patients Paxil Rx. Patient last seen for annual exam on 05/26/21. Trice Jeffries RN documented in this encounter [facility] documented as of this encounter (statuses as of 08/02/2021) [facility] History of Past illness Narrative* Problem Noted Date Resolved Date Transient global amnesia 05/18/2018 021 BPPV (benign paroxysmal positional vertigo) 11/2510/06/2020 Sprain of neck 12/10/2014 10/06/2020 Cervical carcinoma 03/18/2013 10/06/2020 documented as of this encounter (statuses as of 01/11/2022) [facility] History of Past illness Narrative* Problem Noted Date Resolved Date Transient global amnesia 05/18/2018 021 BPPV (benign paroxysmal positional vertigo) 11/2510/06/2020 Sprain of neck 12/10/2014 10/06/2020 Cervical carcinoma 03/18/2013 10/06/2020 documented as of this encounter (statuses as of 06/09/2022) [facility] History of Past illness Narrative* Problem Noted Date Resolved Date Transient global amnesia 05/18/2018 021 BPPV (benign paroxysmal positional vertigo) 11/2510/06/2020 Sprain of neck 12/10/2014 10/06/2020 Cervical carcinoma 03/18/2013 10/06/2020 documented as of this encounter (statuses as of 07/04/2022) [facility] History of Past illness Narrative* Problem Noted Date Resolved Date Transient global amnesia 05/18/2018 021 BPPV (benign paroxysmal positional vertigo) 11/2510/06/2020 Sprain of neck 12/10/2014 10/06/2020 Cervical carcinoma 03/18/2013 10/06/2020 documented as of this encounter (statuses as of 07/04/2022) [facility] History of Past illness Narrative* Problem Noted Date Resolved Date Transient global amnesia 05/18/2018 021 BPPV (benign paroxysmal positional vertigo) 11/2510/06/2020 Sprain of neck 12/10/2014 10/06/2020 Cervical carcinoma 03/18/2013 10/06/2020 documented as of this encounter (statuses as of 07/25/2022) [facility] History of Past illness Narrative* Problem Noted Date Resolved Date Transient global amnesia 05/18/2018 021 BPPV (benign paroxysmal positional vertigo) 11/2510/06/2020 Sprain of neck 12/10/2014 10/06/2020 Cervical carcinoma 03/18/2013 10/06/2020 documented as of this encounter (statuses as of 08/02/2022) [facility] History of Past illness Narrative* Problem Noted Date Diagnosed Date Resolved Date Transient global amnesia 05/18/2018 BPPV (benign paroxysmal positional vertigo) 12/10/2014 10/06/2020 Sprain of neck 12/10/2014 10/06/2020 Cervical carcinoma 03/18/2013 Headache 11/16/2006 08/09/2022 documented as of this encounter (statuses as of 01/29/2023) [facility] [place] note* Diagnosis Hypertension, essential Unspecified essential hypertension documented in this encounter [facility] [place] note* Diagnosis Pharyngitis, unspecified etiology- Primary URI, acute Acute upper respiratory infections of unspecified site [facility] [place] [facility] Diagnosis Encounter for screening mammogram for breast cancer [facility] Diagnosis Encounter for gynecological examination (general) (routine) without abnormal findings- Primary Encounter for screening for malignant neoplasm of colon Special screening for malignant neoplasms, colon [facility] Diagnosis Encounter for screening for malignant neoplasm of colon- Primary Special screening for malignant neoplasms, colon Special screening for malignant neoplasms, colon documented in this encounter [facility] for referral (narrative)* Diagnostic Procedure Only (Routine) - Pending Review Specialty Diagnoses / Procedures Referred By James t Referred To Contact [facility] Diagnoses Encounter for screening mammogram for breast cancer Procedures JULIUS SCREENING SCREENING MAMMOGRAPHY BI 2-VIEW BREAST INC CAD Chadd Carlson MD [address] [place] [address] [facility] [address] [place] [address] Referral ID Status Reason Start Date Expiration Date Visits Requested Visits Authorized [id number] Pending Review Auto-Generat ed Referral 06/29/2022 07/29/2023 1 1 [facility] for referral (narrative)* Outpatient Procedure (Routine) - Closed Specialty Diagnoses / Procedures Referred By James burgos Referred To Contact [facility] Diagnoses Special screening for malignant neoplasms, colon Procedures COLONOSCOPY SCREENING COLONOSCOPY FLX DX W/COLLJ SPEC WHEN PFRMD OlderMireya INFRASTRUCTURE ANALYST.PACKAGING ENGINEER [address] [place] [address] [facility] [address] [place] [address] Referral ID Status Reason Start Date Expiration Date V isits Requested Visits Authorized [id number] Closed Auto-Generate d Referral 10/31/2022 03/26/2023 1 1 [facility] for visit Narrative* Outpatient Procedure (Routine) - Closed Specialty Diagnoses / Procedures Referred By James burgos Referred To Contact [facility] Diagnoses Special screening for malignant neoplasms, colon Procedures COLONOSCOPY SCREENING COLONOSCOPY FLX DX W/COLLJ SPEC WHEN PFRMD Mireya Jean-Baptiste, INFRASTRUCTURE ANALYST.PACKAGING ENGINEER [address] [place] [address] [facility] [address] [place] [address] Referral ID Status Reason Start Date Expiration Date V isits Requested Visits Authorized [id number] Closed Auto-Generate d Referral 10/31/2022 03/26/2023 1 1 [facility] Advance Directives No Advanced Directives Records FoundDocuments on File Type Date Recorded 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 Advance Directive(s) Summary Purpose Family History No Family History Records FoundNo Family History Records Found Reason for Referral Specialty Diagnoses / Procedures Referred By James burgos Referred To Contact [facility] Diagnoses Encounter for screening for malignant neoplasm of colon Procedures CONSULT TO GENERAL SURGERY OFFICE/OUTPATIENT [facility] 60-74 MINUTES Chrystal Whitley APRN.PACKAGING ENGINEER [address] [place] [address] Referral ID Status Reason Start Date Expiration Date Visits Requested Visits Authorized [id number] Authorized PCP Requested Referral 08/02/2022 08/02/2023 1 1 Medications Administered Section Inactive Administered Medications - up to 3 most recent administrations Medication Order MAR Action Action Date Dose Rate Site diphenhydrAMINE 12.5-50 mg injection (BENADRYL) 12.5-50 mg, INTRAVENOUS, DIRECTED, Starting on Mon10/31/22 at 0900, Until Mon10/31/22 at 1259, DOSING DIRECTED BY PHYSICIAN FOR PROCEDURAL SEDATION ONLY, Intraprocedure Given 10/31/2022 8:55 AM EDT 50 mg fentaNYL 50 mcg/mL 25-100 mcg injection (SUBLIMAZE) 25-100 mcg, INTRAVENOUS, DIRECTED, Starting on Mon10/31/22 at 0900, Until Mon10/31/22 at 1259, DOSING DIRECTED BY PHYSICIAN FOR PROCEDURAL SEDATION ONLY, Intraprocedure Given 10/31/2022 8:53 AM EDT 50 mcg lactated ringers iv infusion 30 mL/hr, INTRAVENOUS, CONTINUOUS, Starting on Mon10/31/22 at 0800, Until Mon10/31/22 at 0918, Preprocedure New Bag/Syringe/Bot tle 10/31/2022 7:53 AM EDT 30 mL/hr 30 mL/hr Wrist, Right midazolam 1-5 mg injection (VERSED) 1-5 mg, INTRAVENOUS, DIRECTED, Starting on Mon10/31/22 at 0900, Until Mon10/31/22 at 1259, DOSING DIRECTED BY PHYSICIAN FOR PROCEDURAL SEDATION ONLY, Intraprocedure Given 10/31/2022 9:00 AM EDT 2 mg Additional Source Comments Source Comments (unrecognize d section and content) In the event this informatio n is protected by the Federal Confidentiality of Alcohol and Drug Abuse Patient Records regulations: The Federal rules restrict any use of the information to criminally investigate or prosecute any alcohol or drug abuse patient.[facility] the event this information is protected by the Federal Confidentiality of Alcohol and Drug Abuse Patient Records regulations: The Federal rules restrict any use of the information to criminally investigate or prosecute any alcohol or drug abuse patient.[facility] the event this information is protected by the Federal Confidentiality of Alcohol and Drug Abuse Patient Records regulations: The Federal rules restrict any use of the information to criminally investigate or prosecute any alcohol or drug abuse patient.[facility] the event this information is protected by the Federal Confidentiality of Alcohol and Drug Abuse Patient Records regulations: The Federal rules restrict any use of the information to criminally investigate or prosecute any alcohol or drug abuse patient.[facility] the event this information is protected by the Federal Confidentiality of Alcohol and Drug Abuse Patient Records regulations: The Federal rules restrict any use of the information to criminally investigate or prosecute any alcohol or drug abuse patient.[facility] the event this information is protected by the Federal Confidentiality of Alcohol and Drug Abuse Patient Records regulations: The Federal rules restrict any use of the information to criminally investigate or prosecute any alcohol or drug abuse patient.[facility] the event this information is protected by the Federal Confidentiality of Alcohol and Drug Abuse Patient Records regulations: The Federal rules restrict any use of the information to criminally investigate or prosecute any alcohol or drug abuse patient.[facility] the event this information is protected by the Federal Confidentiality of Alcohol and Drug Abuse Patient Records regulations: The Federal rules restrict any use of the information to criminally investigate or prosecute any alcohol or drug abuse patient.[facility] Reason for Visit (unrecogniz ed section and content) Reason Onset Date Comments Refill Request 01/10/2022 Reason Comments Sore Throat Nausea, MITCHELL started l ast night Reason Onset Date Comments Refill Request 07/04/2022 Reason Comments Yearly Exam Care Teams (unrecognized sec tion and content) Chief Nursing Officer Relationship Specialty Start Date End Date Chadd Carlson MD [address] [place] [address] PCP - General Internal Medicine 10/21/20 Chief Nursing Officer Relationship Specialty Start Date End Date Chadd Carlson MD [address] [place] [address] PCP - General Internal Medicine 10/21/20 Chief Nursing Officer Relationship Specialty Start Date End Date Chadd Carlson MD [address] [place] [address] PCP - General Internal Medicine 10/21/20 Chief Nursing Officer Relationship Specialty Start Date End Date Chadd Carlson MD [address] [place] [address] PCP - General Internal Medicine 10/21/20 Chief Nursing Officer Relationship Specialty Start Date End Date Chadd Carlson MD [address] [place] [address] PCP - General Internal Medicine 10/21/20 Chief Nursing Officer Relationship Specialty Start Date End Date Chadd Carlson MD [address] [place] [address] PCP - General Internal Medicine 10/21/20 INFORMATION SOURCE (unrecogn ized section and content) DATE CREATED AUTHOR AUTHOR'S ORGANIZ ATION 04/10/2023 [facility] FOR RECORDS PERTAINING TO PATIENTS WHO ARE OR HAVE BEEN ENROLLED IN A CHEMICAL DEPENDENCY/SUBSTANCEABUSE PROGRAM, SOME INFORMATION MAY BE OMITTED. This clinical summary was aggregated from multiple sources. Caution should be exercised in using it in the provision of clinical care. This summary normalizes information from multiple sources, and as a consequence, information in this document may materially change the coding, format and clinical context of patient data. In addition, data may be omitted in some cases. CLINICAL DECISIONS SHOULD BE BASED ON THE PRIMARY CLINICAL RECORDS. [facility]. provides no warranty or guarantee of the accuracy or completeness of information in this document.
[2023-04-30] MEDS: 0.9% Normal Saline (500mL Bag) 500 ML 1000 ML IV (15:14)
[2023-04-30] MEDS: Ondansetron 4 MG/2 ML Vial IV (15:14)
[2023-04-30] MEDS: Meclizine HCl 25 MG Tablet PO (15:14)
[2023-04-30 15:25] LABS: Absolute Lymphocyte Count 3.82 X10^3/uL (0.83-4.51); Absolute Neutrophil Count 3.3 X10^3/uL (2.0-7.7); Basophil# 0.03 X10^3/uL; Basophil% 0.4 % (0-1); Eosinophil# 0.07 X10^3/uL; Eosinophils% 0.9 % (0-5); Hematocrit 42.7 % (37-47); Hemoglobin 14.3 g/dL (12.0-15.0); Lymphocyte # 3.82 X10^3/ul (0.83-4.51); Lymphocyte % 48.9 % (19-41); Mean Corp Hgb Conc 33.5 g/dL (32-36); Mean Corpuscular Hgb 29.9 pg (27.0-32.0); Mean Corpuscular Volume 89.1 fL (81-99); Mean Platelet Vol. 9.6 fl (6.2-12.0); Monocyte# 0.53 X10^3/uL; Monocyte% 6.8 % (0-10); NRBC Flagged by Analyzer 0 % (0-5); Neutrophil # 3.34 X10^3/uL (2.7-7.7); Neutrophil % 42.7 % (47-70); Platelet Count 219 K/mm3 (150-450); RBC Distribution Width SD 39.5 fl (35.1-43.9); Red Blood Count 4.79 M/mm3 (4.2-5.4); White Blood Count 7.8 K/mm3 (4.4-11.0)
[2023-04-30 15:50] LABS: ALB/GLOB Ratio 0.9 RATIO (0.9-2.4); AST(SGOT) 19 U/L (15-37); Alanine Aminotransfer ALT/SGPT 19 U/L (13-56); Albumin, Serum 3.5 g/dL (3.2-5.0); Alkaline Phosphatase 121 U/L (45-117); Anion Gap 3 (5-15); BUN 15 mg/dL (7-18); BUN/Creat Ratio 16.6 RATIO (10-20); Calcium,Total 8.9 mg/dL (8.5-10.1); Chloride 111 mmol/L (98-107); EST Glomerular Filtration Rate 66 mL/min (>60); Est Glom Filt Rate - Afr Amer 80 mL/min (>60); Estimated Creatinine Clearance 46.66 ml/min; Globulin 4.1 g/dL (2.2-4.2); Glucose 71 mg/dL (74-106); Protein, Total 7.6 g/dL (6.4-8.2); Sodium Level 142 mmol/L (136-145); Troponin-I HS 5 pg/mL (3.0-54.0)
--- NOTE | 2023-04-30 16:00 | RAD_ITS ---
EXAM: XR CHEST, 1 VIEW CLINICAL INDICATION: Dizziness TECHNIQUE: Frontal view of the chest. COMPARISON: 03/23/1960 FINDINGS: LUNGS AND PLEURAL SPACES: No significant abnormality. No consolidation or edema. No pneumothorax. No effusion. HEART: No significant abnormality. Cardiac silhouette not enlarged. MEDIASTINUM: Central airways and mediastinal contour are unremarkable. BONES/JOINTS: No significant abnormality. No acute fracture. SOFT TISSUES: No significant abnormality. VASCULATURE: Atherosclerosis. RAD/Chest 1 View (Portable) IMPRESSION: No acute findings in the chest. Electronically Signed: Marcus Hinton DO at 16:10 EST ,
== END 2023-04-30 18:09 | disposition home or self-care (01) ==
PROVIDERS: Emergency Provider Emergency Medicine; PCP Internal Medicine; Visit Provider Emergency Medicine
DX: R42 Dizziness and giddiness (principal); E78.5 Hyperlipidemia, unspecified; R00.1 Bradycardia, unspecified; I10 Essential (primary) hypertension; Z87.891 Personal history of nicotine dependence
CPT/HCPCS: 70496; 70498; 71045; 80053; 84484; 85025; 93005; 96374; 99285; J7030; Q9967; A4216; J2405

== ENCOUNTER → 2024-05-14 | Outpatient (CLI) | payer MEDICARE, SELFPAY ==
--- NOTE | 2024-05-14 13:05 | RAD_ITS ---
PROCEDURE: CHEST PA AND LATERAL REASON FOR EXAM: 4 days of cough TECHNIQUE: Frontal and lateral views of the chest. COMPARISON: 04/30/2023 FINDINGS: The heart size is normal. There are atherosclerotic calcifications of the thoracic aorta. The lungs are clear. The bones are unremarkable. RAD/Chest PA and Lateral IMPRESSION: No radiographic evidence of acute cardiopulmonary disease Reading Location: [facility]
== END | disposition home or self-care (01) ==
LOC: MTRAD 13:05
PROVIDERS: PCP Internal Medicine; Referring Provider Nurse Practitioner; Visit Provider Nurse Practitioner
DX: R05.1 Acute cough (principal)
CPT/HCPCS: 71046